=== PATIENT | male | born 1945 | race Caucasian/White ===

== ENCOUNTER 2020-12-24 09:00 | Inpatient (IN) ==
[~2020-12-24 09:00] MED LIST: CLORAZEPATE 3.75 MG TABLET PO PRN; DEXTROSE 50% 25 GM/50 ML VIAL IV PRN; GLUCAGON 1 MG VIAL IM PRN; MORPHINE 4 MG/1 ML VIAL IV PRN; NITROGLYCERIN SL 0.4 MG TABLET SL PRN
[2020-12-24 10:21] LABS: Basophils % 0.4 % (0.0-0.8); Eosinophils # 0.5 10*3/uL (0.0-0.87); Eosinophils % 4.2 % (0.00-10.9); Hematocrit 42.2 VOL% (42.0-52.0); Hemoglobin 13.2 GM/DL (14.0-18.0); Immature Granulocytes % 1.7 %; Immature Granulocytes Absolute 0.19 #; Lymphocytes # 1.3 10*3/uL (1.4-4.0); Lymphocytes % 11.5 % (21.2-54.2); Mean Corpuscular HGB Conc 31.3 GM/DL (32-36); Mean Corpuscular Volume 88.5 FL (87-102); Mean Platelet Volume 8.3 FL (9.6-12.0); Monocytes % 6.2 % (1.7-12.7); Platelet Count 327 T/CUMM (130-400); Red Blood Count 4.77 MC/CUMM (3.8-5.5); Red Cell Distribution Width 15.8 % (9.3-17.3); White Blood Count 10.9 T/CUMM (4-12)
[2020-12-24 10:44] LABS: Albumin 3.4 G/DL (3.4-5.0); Bilirubin,Total 0.5 MG/DL (0.2-1.0); Calcium 9.1 MG/DL (8.5-10.1); Osmolality,Calculated 274.8 MOS/KG (273-304); Potassium 3.5 MMOL/L (3.5-5.1); Total Protein 7.4 G/DL (5.0-7.5)
[2020-12-24 10:54] LABS: ABG Base Excess 0.4 MMOL/L (-2.5-2.5); ABG HCO3 23.8 MMOL/L (20-26); ABG Oxygen Saturation 95.3 % (95-100); ABG PCO2 34.5 MM HG (35-48); ABG PH 7.457 (7.35-7.45); ABG PO2 77.3 MM HG (80-95); ABG TCO2 24.9 MMOL/L (23-27)
[2020-12-24] MEDS: SODIUM CHLORIDE 0.9% 1,000 ML IV SCH (10:57)
[2020-12-24] MEDS: CHLORHEXIDINE 0.12% ORAL RINSE 60 ML BOTTLE SWISH/SPIT SCH ×2 (11:35→20:50)
[2020-12-24] MEDS: CHLORHEXIDINE 4% SOLN 118 ML BOTTLE TOP SCH ×4 (11:35→20:45)
[2020-12-24] MEDS: LOSARTAN 25 MG TABLET PO SCH (13:51)
[2020-12-24] MEDS: ASPIRIN EC 81 MG TABLET PO SCH (13:51)
[2020-12-24] MEDS: ISOSORBIDE MONONITRATE 30 MG TABLET PO SCH (13:52)
[2020-12-24] MEDS ORDERED: ZALEPLON 5 MG CAPSULE PO PRN (19:25)
[2020-12-24] MEDS ORDERED: ROSUVASTATIN 20 MG TABLET PO SCH (21:00)
[2020-12-25] MEDS: LOSARTAN 25 MG TABLET PO SCH ×2 (00:29→09:29)
[2020-12-25] MEDS ORDERED: hydrALAZINE 20 MG/1 ML VIAL IV PRN (00:33)
[2020-12-25] MEDS ORDERED: NITROGLYCERIN 2% OINT 1 INCH/GM PACK TOP ONE (00:34)
[2020-12-25] MEDS ORDERED: VANCOMYCIN 500 MG VIAL ONE (04:21)
[2020-12-25] MEDS ORDERED: PAPAVERINE 60 MG/2 ML VIAL ONE ×2 (04:21→05:57)
[2020-12-25] MEDS ORDERED: VANCOMYCIN 1,000 MG VIAL ONE (04:21)
[2020-12-25] MEDS: CHLORHEXIDINE 4% SOLN 118 ML BOTTLE TOP SCH (04:30)
[2020-12-25] MEDS ORDERED: CEFUROXIME INJ 1,500 MG in SYRINGE 1 EACH IV ONE (05:00)
[2020-12-25] MEDS ORDERED: AMINOCAPROIC ACID 5,000 MG/20 ML VIAL ONE (05:28)
[2020-12-25] MEDS ORDERED: HEPARIN/NACL 0.9% 2 UNITS/ML 500 ML IV ONE (05:29)
[2020-12-25] MEDS ORDERED: PHENYLEPHRINE DRIP 20 MG/250 ML PREMIX IV ONE (05:29)
[2020-12-25] MEDS ORDERED: NITROGLYCERIN DRIP 50 MG/250 ML BOTTLE IV ONE (05:29)
[2020-12-25] MEDS ORDERED: ALBUTEROL 2.5 MG/3 ML NEB RESP TX ONE (05:45)
[2020-12-25] MEDS ORDERED: SODIUM CHLORIDE 0.9% 250 ML IV ONE ×2 (05:45→06:20)
[2020-12-25] MEDS ORDERED: DIAZEPAM 5 MG TABLET PO ONE (05:45)
[2020-12-25] MEDS ORDERED: SODIUM CHLORIDE 0.9% 0 ML IV ONE (05:45)
[2020-12-25] MEDS ORDERED: LACTATED RINGERS 1,000 ML IV ONE (05:45)
[2020-12-25] MEDS ORDERED: FAMOTIDINE 20 MG TABLET PO ONE (05:45)
[2020-12-25] MEDS ORDERED: MINERAL OIL/PETROLATUM OPH OINT 3.5 GM TUBE ONE (05:54)
[2020-12-25] MEDS ORDERED: MIDAZOLAM 10 MG/2 ML VIAL ONE ×4 (05:55→05:56)
[2020-12-25] MEDS ORDERED: SUFentanil 250 MCG/5 ML AMP ONE ×4 (06:00)
[2020-12-25] MEDS ORDERED: SODIUM CHLORIDE 0.9% 100 ML IV ONE (06:00)
[2020-12-25] MEDS ORDERED: LIDOCAINE 2% 5 ML VIAL ONE ×2 (06:12→11:14)
[2020-12-25] MEDS ORDERED: VECURONIUM 10 MG VIAL IV ONE (06:13)
[2020-12-25] MEDS ORDERED: ETOMIDATE 40 MG/20 ML VIAL IV ONE (06:18)
[2020-12-25] MEDS ORDERED: ePHEDrine 50 MG/ML VIAL ONE (07:34)
[2020-12-25 08:03] LABS: Hemoglobin Heart Surgery 12.4 G/DL (14.0-18.0); PCO2 Patient Temp Venous 36.2 MM HG; PH Patient Temp Venous 7.403; PO2 Patient Temp Venous 57.5 MM HG; Potassium Heart/CVR 2.9 MMOL/L (3.5-5.1); VBG Base Excess -2.2 MEQ/L (0-4); VBG HCO3 22.1 MEQ/L (24-28); VBG Oxygen Saturation 86.7 %; VBG PCO2 36.2 MMHG (41-51); VBG PH 7.403; VBG PO2 57.5 MMHG (17-40); VBG Total CO2 23.2 MMOL/L
[2020-12-25 08:15] LABS: Bilirubin,Urine Negative (Negative); Blood, Urine Small mg/dL (Negative); Glucose,Urine (UA) Negative (Negative); Ketones,Urine Negative (Negative); Mucus,Urine Occasional /LPF (Occasional); Nitrite,Urine Negative (Negative); Protein,Urine Negative; RBC,Urine 2 /HPF (0-4); Squamous Epithelial Cell,Urine Occasional /HPF (0-10); Urine Appearance CLEAR (Clear); Urine Color Straw (Yellow); Urine Specific Gravity 1.006 (1.001-1.035); Urine Urobilinogen < 2.0 EU/DL (0.2-1.0); WBC,Urine <1 /HPF (0-6)
[2020-12-25] MEDS ORDERED: PHENYLEPHRINE DRIP 40 MG/250 ML PREMIX IV ONE (09:03)
[2020-12-25] MEDS ORDERED: POTASSIUM CHLORIDE RIDER 100 ML IV ONE (09:03)
[2020-12-25] MEDS ORDERED: CALCIUM CHLORIDE 1,000 MG/10 ML SYRINGE IV ONE (09:03)
[2020-12-25] MEDS ORDERED: NITROPRUSSIDE 50 MG/2 ML VIAL ONE (09:03)
[2020-12-25] MEDS ORDERED: SODIUM BICARBONATE 50 MEQ/50 ML VIAL IV ONE ×2 (09:03→11:15)
[2020-12-25 09:17] LABS: Hematocrit Heart Surgery 26.3 PERCENT (42-52); Hemoglobin Heart Surgery 8.5 G/DL (14.0-18.0); PCO2 Patient Temp Venous 27.8 MM HG; PH Patient Temp Venous 7.513; PO2 Patient Temp Venous 36.5 MM HG; Potassium Heart/CVR 3.5 MMOL/L (3.5-5.1); VBG Base Excess 0.1 MEQ/L (0-4); VBG HCO3 24.3 MEQ/L (24-28); VBG Oxygen Saturation 84.9 %; VBG PCO2 33.7 MMHG (41-51); VBG PH 7.454; VBG PO2 48.1 MMHG (17-40); VBG Total CO2 21.9 MMOL/L
[2020-12-25] MEDS ORDERED: SODIUM CHLORIDE 0.9% 1,000 ML IV ONE (09:18)
[2020-12-25] MEDS: ASPIRIN EC 81 MG TABLET PO SCH (09:29)
[2020-12-25] MEDS: CHLORHEXIDINE 0.12% ORAL RINSE 60 ML BOTTLE SWISH/SPIT SCH ×2 (09:29→20:23)
[2020-12-25] MEDS: SODIUM CHLORIDE 0.9% 1,000 ML IV SCH (09:29)
[2020-12-25] MEDS: ISOSORBIDE MONONITRATE 30 MG TABLET PO SCH (09:29)
[2020-12-25 09:49] LABS: Hematocrit Heart Surgery 27.2 PERCENT (42-52); Hemoglobin Heart Surgery 8.8 G/DL (14.0-18.0); PCO2 Patient Temp Venous 32.5 MM HG; PH Patient Temp Venous 7.452; PO2 Patient Temp Venous 42.8 MM HG; Potassium Heart/CVR 3.2 MMOL/L (3.5-5.1); VBG Base Excess -0.7 MEQ/L (0-4); VBG HCO3 23.6 MEQ/L (24-28); VBG Oxygen Saturation 85.9 %; VBG PCO2 37.6 MMHG (41-51); VBG PH 7.408; VBG PO2 52.4 MMHG (17-40); VBG Total CO2 21.9 MMOL/L
[2020-12-25] MEDS ORDERED: ESMOLOL 100 MG/10 ML VIAL IV ONE (10:05)
[2020-12-25] MEDS ORDERED: CALCIUM CHLORIDE 1,000 MG/10 ML VIAL IV ONE ×2 (10:07→10:35)
[2020-12-25] MEDS ORDERED: THROMBIN TOPICAL (RECOMBINANT) 5,000 UNIT VIAL TOP ONE (10:32)
[2020-12-25 11:09] LABS: Hematocrit Heart Surgery 25.9 PERCENT (42-52); Hemoglobin Heart Surgery 8.3 G/DL (14.0-18.0); PCO2 Patient Temp Venous 45.8 MM HG; PH Patient Temp Venous 7.337; PO2 Patient Temp Venous 51.3 MM HG; Potassium Heart/CVR 3.4 MMOL/L (3.5-5.1); VBG Base Excess -1.4 MEQ/L (0-4); VBG Oxygen Saturation 81.7 %; VBG PCO2 45.8 MMHG (41-51); VBG PH 7.337; VBG PO2 51.3 MMHG (17-40)
[2020-12-25] MEDS ORDERED: methylPREDNISolone SOD SUC 1,000 MG/8 ML VIAL ONE (11:14)
[2020-12-25] MEDS ORDERED: DEXTROSE 5% KCL 20 MEQ 20 MEQ/1,000 ML BAG IV ONE (11:14)
[2020-12-25] MEDS ORDERED: MAGNESIUM SULFATE 5 GM/10 ML VIAL IV ONE (11:14)
[2020-12-25] MEDS ORDERED: ALBUMIN 25% 25 GM/100 ML VIAL IV ONE (11:14)
[2020-12-25] MEDS ORDERED: ALBUMIN 5% 12.5 GM/250 ML VIAL IV ONE (11:15)
[2020-12-25] MEDS ORDERED: FUROSEMIDE 20 MG/2 ML VIAL ONE (11:15)
[2020-12-25] MEDS ORDERED: PROTAMINE SULFATE 250 MG/25 ML VIAL IV ONE (11:15)
[2020-12-25] MEDS ORDERED: PROTAMINE SULFATE 50 MG/5 ML VIAL IV ONE (11:15)
[2020-12-25] MEDS ORDERED: MANNITOL 100 GM/500 ML BAG IV ONE (11:15)
[2020-12-25] MEDS ORDERED: POTASSIUM CHLORIDE 20 MEQ/10 ML VIAL ONE (11:15)
[2020-12-25] MEDS ORDERED: HEPARIN 10,000 UNIT/10 ML VIAL ONE (11:15)
[2020-12-25] MEDS ORDERED: SEVOFLURANE 1 UNIT/15 MINUTE INH ONE (12:03)
[2020-12-25] MEDS ORDERED: NITROPRUSSIDE 100 MG in DEXTROSE 5% 250 ML IV PRN (12:17)
[2020-12-25] MEDS ORDERED: CALCIUM CHLORIDE 1,000 MG/10 ML SYRINGE IV PRN (12:17)
[2020-12-25] MEDS ORDERED: MIDAZOLAM 10 MG/2 ML VIAL IV PRN (12:17)
[2020-12-25] MEDS ORDERED: INSULIN REGULAR 100 UNIT/ML IV ONE (12:17)
[2020-12-25] MEDS ORDERED: ONDANSETRON 4 MG/2 ML VIAL IV PRN (12:17)
[2020-12-25] MEDS ORDERED: PHENYLEPHRINE DRIP 40 MG/250 ML PREMIX IV PRN (12:17)
[2020-12-25] MEDS ORDERED: ACETAMINOPHEN 650 MG SUPP RECTAL PRN (12:17)
[2020-12-25] MEDS ORDERED: MAGNESIUM SULF RIDER 2 GM in PREMIX 1 EACH IV PRN (12:17)
[2020-12-25] MEDS ORDERED: INSULIN REGULAR 100 UNIT/ML IV PRN (12:17)
[2020-12-25] MEDS ORDERED: LACTATED RINGERS 250 ML IV PRN (12:17)
[2020-12-25] MEDS ORDERED: MAGNESIUM SULF RIDER 4 GM in PREMIX 1 EACH IV PRN (12:17)
[2020-12-25] MEDS ORDERED: DEXTROSE 50% 25 GM/50 ML VIAL IV PRN ×3 (12:17→14:46)
[2020-12-25] MEDS ORDERED: VECURONIUM 10 MG VIAL IV PRN ×2 (12:17)
[2020-12-25 12:28] LABS: ABG Base Excess 0.1 MMOL/L (-2.5-2.5); ABG HCO3 24.6 MMOL/L (20-26); ABG Oxygen Saturation 99.8 % (95-100); ABG PCO2 40.6 MM HG (35-48); ABG PH 7.397 (7.35-7.45); ABG TCO2 22.5 MMOL/L (23-27); Glucose Heart Surgery 145 MG/DL (74-106); Hematocrit Heart Surgery 32.4 PERCENT (42-52); Hemoglobin Heart Surgery 10.5 G/DL (14.0-18.0); Potassium Heart/CVR 3.8 MMOL/L (3.5-5.1)
[2020-12-25 12:29] LABS: Basophils % 0.3 % (0.0-0.8); Eosinophils # 0.1 10*3/uL (0.0-0.87); Eosinophils % 1.1 % (0.00-10.9); Hematocrit 32.3 VOL% (42.0-52.0); Hemoglobin 10.3 GM/DL (14.0-18.0); Immature Granulocytes % 1.6 %; Immature Granulocytes Absolute 0.19 #; Lymphocytes # 0.8 10*3/uL (1.4-4.0); Lymphocytes % 7.1 % (21.2-54.2); Mean Corpuscular HGB Conc 31.9 GM/DL (32-36); Mean Platelet Volume 8.8 FL (9.6-12.0); Monocytes % 5.2 % (1.7-12.7); Neutrophils % 84.7 % (38.7-73.9); Platelet Count 231 T/CUMM (130-400); Red Blood Count 3.67 MC/CUMM (3.8-5.5); Red Cell Distribution Width 15.8 % (9.3-17.3); White Blood Count 11.7 T/CUMM (4-12)
[2020-12-25] MEDS: SODIUM CHLORIDE 0.45% 1,000 ML IV SCH ×2 (12:37)
[2020-12-25] MEDS: POTASSIUM CHLORIDE RIDER 20 MEQ in PREMIX 1 EACH IV PRN ×4 (12:40→23:59)
[2020-12-25 12:44] LABS: INR 1.1; PT Patient Result 12.2 SECS (9.8-11.9); Partial Thromboplastin Time 26.2 SECS (23.9-33.8)
[2020-12-25] MEDS: methylPREDNISolone SOD SUC 40 MG/1 ML VIAL IV SCH ×2 (12:46→18:18)
[2020-12-25] MEDS: KETOROLAC 30 MG/1 ML VIAL IV SCH ×2 (12:46→18:18)
[2020-12-25 12:51] LABS: CKMB % 11.9 %
[2020-12-25 12:56] LABS: Albumin 2.9 G/DL (3.4-5.0); Bilirubin,Total 1.2 MG/DL (0.2-1.0); Calcium 8.8 MG/DL (8.5-10.1); Potassium 3.8 MMOL/L (3.5-5.1); Total Protein 5.4 G/DL (5.0-7.5)
[2020-12-25] MEDS: POTASSIUM CHLORIDE RIDER 10 MEQ in PREMIX 1 EACH IV PRN ×2 (13:10→16:47)
[2020-12-25 13:15] LABS: Troponin I 5.84 NG/ML (0.00-0.045)
[2020-12-25 14:00] LABS: ABG Base Excess 0.7 MMOL/L (-2.5-2.5); ABG HCO3 25.1 MMOL/L (20-26); ABG Oxygen Saturation 99.6 % (95-100); ABG PCO2 36.7 MM HG (35-48); ABG PH 7.436 (7.35-7.45); ABG TCO2 22.2 MMOL/L (23-27); Glucose Heart Surgery 174 MG/DL (74-106); Hematocrit Heart Surgery 32.4 PERCENT (42-52); Hemoglobin Heart Surgery 10.5 G/DL (14.0-18.0); Potassium Heart/CVR 4.4 MMOL/L (3.5-5.1)
[2020-12-25] MEDS: ALBUMIN 5% 12.5 GM in PREMIX 1 EACH IV PRN ×3 (14:12→21:25)
[2020-12-25 14:26] LABS: VBG Base Excess 0.3 MEQ/L (0-4); VBG HCO3 24.2 MEQ/L (24-28); VBG Oxygen Saturation 66.9 %; VBG PCO2 43.7 MMHG (41-51); VBG PH 7.376; VBG PO2 38.7 MMHG (17-40); VBG Total CO2 23.5 MMOL/L
[2020-12-25] MEDS: INSULIN REGULAR DRIP 100 ML IV SCH (14:28)
[2020-12-25] MEDS ORDERED: GLUCAGON 1 MG VIAL IM PRN (14:46)
[2020-12-25] MEDS: INSULIN REGULAR 100 UNIT/ML SUBCUT SCH ×3 (15:02→20:19)
[2020-12-25 16:08] LABS: ABG Base Excess -0.4 MMOL/L (-2.5-2.5); ABG HCO3 23.2 MMOL/L (20-26); ABG Oxygen Saturation 98.1 % (95-100); ABG PCO2 33.9 MM HG (35-48); ABG PH 7.453 (7.35-7.45); ABG PO2 142.2 MM HG (80-95); ABG TCO2 24.2 MMOL/L (23-27); Glucose Heart Surgery 154 MG/DL (74-106); Hemoglobin Heart Surgery 9.1 G/DL (14.0-18.0); Potassium Heart/CVR 3.7 MMOL/L (3.5-5.1)
[2020-12-25 17:25] LABS: ABG Base Excess -0.7 MMOL/L (-2.5-2.5); ABG HCO3 23.8 MMOL/L (20-26); ABG Oxygen Saturation 99.5 % (95-100); ABG PCO2 36.7 MM HG (35-48); ABG PH 7.415 (7.35-7.45); ABG TCO2 21.6 MMOL/L (23-27); Glucose Heart Surgery 164 MG/DL (74-106); Hematocrit Heart Surgery 28.2 PERCENT (42-52); Hemoglobin Heart Surgery 9.1 G/DL (14.0-18.0); Potassium Heart/CVR 4.6 MMOL/L (3.5-5.1)
[2020-12-25 20:21] LABS: ABG Base Excess -1.3 MMOL/L (-2.5-2.5); ABG HCO3 23.4 MMOL/L (20-26); ABG Oxygen Saturation 99.4 % (95-100); ABG PCO2 37.7 MM HG (35-48); ABG PH 7.397 (7.35-7.45); ABG TCO2 21.1 MMOL/L (23-27); Glucose Heart Surgery 142 MG/DL (74-106); Hematocrit Heart Surgery 31.6 PERCENT (42-52); Hemoglobin Heart Surgery 10.2 G/DL (14.0-18.0); Potassium Heart/CVR 4.4 MMOL/L (3.5-5.1)
[2020-12-25] MEDS: CEFUROXIME INJ 1,500 MG in SYRINGE 1 EACH IV SCH (20:23)
[2020-12-25 20:51] LABS: Troponin I 10.9 NG/ML (0.00-0.045)
[2020-12-25] MEDS ORDERED: FUROSEMIDE 40 MG/4 ML VIAL IV ONE (21:19)
[2020-12-25 23:50] LABS: ABG HCO3 23.6 MMOL/L (20-26); ABG Oxygen Saturation 99.1 % (95-100); ABG PCO2 37.6 MM HG (35-48); ABG PH 7.404 (7.35-7.45); ABG TCO2 21.3 MMOL/L (23-27); Glucose Heart Surgery 154 MG/DL (74-106); Hematocrit Heart Surgery 31.6 PERCENT (42-52); Hemoglobin Heart Surgery 10.2 G/DL (14.0-18.0); Potassium Heart/CVR 4.2 MMOL/L (3.5-5.1)
[2020-12-26] MEDS: methylPREDNISolone SOD SUC 40 MG/1 ML VIAL IV SCH ×4 (00:01→17:58)
[2020-12-26] MEDS: KETOROLAC 30 MG/1 ML VIAL IV SCH ×4 (00:04→18:01)
[2020-12-26] MEDS: MIDAZOLAM 2 MG/2 ML VIAL IV PRN ×2 (00:38→08:45)
[2020-12-26 01:39] LABS: ABG Base Excess -0.7 MMOL/L (-2.5-2.5); ABG HCO3 23.9 MMOL/L (20-26); ABG Oxygen Saturation 99.2 % (95-100); ABG PCO2 39.8 MM HG (35-48); ABG PH 7.391 (7.35-7.45); Glucose Heart Surgery 158 MG/DL (74-106); Hematocrit Heart Surgery 30.9 PERCENT (42-52); Potassium Heart/CVR 4.5 MMOL/L (3.5-5.1)
[2020-12-26 02:34] LABS: ABG Oxygen Saturation 97.4 % (95-100); ABG PCO2 35.3 MM HG (35-48); ABG PH 7.431 (7.35-7.45); ABG PO2 109.7 MM HG (80-95); Glucose Heart Surgery 137 MG/DL (74-106); Hemoglobin Heart Surgery 10.3 G/DL (14.0-18.0); Potassium Heart/CVR 4.2 MMOL/L (3.5-5.1)
[2020-12-26] MEDS: POTASSIUM CHLORIDE RIDER 20 MEQ in PREMIX 1 EACH IV PRN ×3 (03:02→17:49)
[2020-12-26] MEDS: MORPHINE 4 MG/1 ML VIAL IV PRN (03:02)
[2020-12-26 04:41] LABS: ABG Base Excess -0.9 MMOL/L (-2.5-2.5); ABG HCO3 23.7 MMOL/L (20-26); ABG Oxygen Saturation 99.3 % (95-100); ABG PCO2 36.7 MM HG (35-48); ABG PH 7.411 (7.35-7.45); ABG TCO2 21.4 MMOL/L (23-27); Glucose Heart Surgery 159 MG/DL (74-106); Hemoglobin Heart Surgery 9.4 G/DL (14.0-18.0); Potassium Heart/CVR 4.7 MMOL/L (3.5-5.1)
[2020-12-26 04:42] LABS: Basophils % 0.2 % (0.0-0.8); Hematocrit 28.3 VOL% (42.0-52.0); Hemoglobin 9.1 GM/DL (14.0-18.0); Immature Granulocytes % 0.5 %; Immature Granulocytes Absolute 0.07 #; Lymphocytes # 0.6 10*3/uL (1.4-4.0); Lymphocytes % 4.3 % (21.2-54.2); Mean Corpuscular HGB Conc 32.2 GM/DL (32-36); Mean Corpuscular Volume 87.9 FL (87-102); Mean Platelet Volume 9.3 FL (9.6-12.0); Monocytes % 2.6 % (1.7-12.7); Neutrophils % 92.4 % (38.7-73.9); Platelet Count 209 T/CUMM (130-400); Red Blood Count 3.22 MC/CUMM (3.8-5.5); White Blood Count 13.2 T/CUMM (4-12)
[2020-12-26] MEDS ORDERED: VANCOMYCIN 1,000 MG VIAL ONE ×2 (05:05→06:54)
[2020-12-26 05:14] LABS: Albumin 3.1 G/DL (3.4-5.0); Bilirubin,Direct 0.19 MG/DL (0.0-0.20); Bilirubin,Total 1.2 MG/DL (0.2-1.0); Total Protein 5.1 G/DL (5.0-7.5)
[2020-12-26 05:16] LABS: CKMB % 23.3 %
[2020-12-26 05:19] LABS: Lymphocytes 5 % (20-55); Segmented Neutrophils 93 % (50-85); Total Cells Counted 100; Troponin I 19.7 NG/ML (0.00-0.045)
[2020-12-26 05:20] LABS: Hypochromasia 1+; Platelet Estimate Normal
[2020-12-26] MEDS ORDERED: SUFentanil 250 MCG/5 ML AMP ONE ×2 (05:53→07:54)
[2020-12-26] MEDS ORDERED: MIDAZOLAM 10 MG/2 ML VIAL ONE ×3 (05:53→07:49)
[2020-12-26] MEDS ORDERED: EPINEPHrine 1 MG/ML VIAL ONE ×2 (06:20→06:46)
[2020-12-26] MEDS ORDERED: EPINEPHrine 1 MG/10 ML SYRINGE ONE (06:21)
[2020-12-26 06:22] LABS: ABG Base Excess -8.5 MMOL/L (-2.5-2.5); ABG HCO3 15.1 MMOL/L (20-26); ABG PCO2 26.4 MM HG (35-48); ABG PH 7.375 (7.35-7.45); ABG PO2 427.9 MM HG (80-95); ABG TCO2 15.9 MMOL/L (23-27); Glucose Heart Surgery 204 MG/DL (74-106); Hemoglobin Heart Surgery 12.7 G/DL (14.0-18.0); Ionized Calcium Arterial 0.92 MMOL/L (1.21-1.46); PCO2 Patient Temp Arterial 26.4 MMHG; PH Patient Temp Arterial 7.375; PO2 Patient Temp Arterial 427.9 MM HG; Patient Temperature 37 CELCIUS; Potassium Heart/CVR 5.7 MMOL/L (3.5-5.1); Sodium Heart/CVR 136 MMOL/L (135-145)
[2020-12-26] MEDS ORDERED: AMIODARONE 150 MG/3 ML VIAL ONE ×2 (06:43→08:56)
[2020-12-26] MEDS ORDERED: MANNITOL 100 GM/500 ML BAG IV ONE ×2 (06:43→08:05)
[2020-12-26] MEDS ORDERED: LIDOCAINE 2% 5 ML VIAL ONE (06:44)
[2020-12-26] MEDS ORDERED: ETOMIDATE 40 MG/20 ML VIAL IV ONE (06:44)
[2020-12-26] MEDS ORDERED: SEVOFLURANE 1 UNIT/15 MINUTE INH ONE (06:44)
[2020-12-26] MEDS ORDERED: SUCCINYLCHOLINE 200 MG/10 ML VIAL ONE (06:44)
[2020-12-26] MEDS ORDERED: PHENYLEPHRINE 1 MG/10 ML SYRINGE IV ONE (06:45)
[2020-12-26] MEDS ORDERED: PHENYLEPHRINE DRIP 20 MG/250 ML PREMIX IV ONE (06:45)
[2020-12-26] MEDS ORDERED: SODIUM CHLORIDE 0.9% 500 ML IV ONE (06:46)
[2020-12-26] MEDS ORDERED: LACTATED RINGERS 1,000 ML IV ONE ×2 (06:46→07:22)
[2020-12-26 06:51] LABS: Hematocrit Heart Surgery 31.6 PERCENT (42-52); Hemoglobin Heart Surgery 10.2 G/DL (14.0-18.0); PCO2 Patient Temp Venous 44.2 MM HG; PH Patient Temp Venous 7.325; PO2 Patient Temp Venous 48.8 MM HG; Potassium Heart/CVR 4.7 MMOL/L (3.5-5.1); VBG Base Excess -2.9 MEQ/L (0-4); VBG HCO3 21.9 MEQ/L (24-28); VBG Oxygen Saturation 90.9 %; VBG PCO2 51.1 MMHG (41-51); VBG PH 7.284; VBG PO2 59.7 MMHG (17-40); VBG Total CO2 22.3 MMOL/L
[2020-12-26] MEDS ORDERED: FAMOTIDINE 20 MG/2 ML VIAL IV ONE (07:15)
[2020-12-26] MEDS ORDERED: diphenhydrAMINE 50 MG/1 ML VIAL ONE (07:22)
[2020-12-26] MEDS ORDERED: CALCIUM CHLORIDE 1,000 MG/10 ML VIAL IV ONE (07:22)
[2020-12-26] MEDS ORDERED: DOBUTamine 500 MG/250 ML PREMIX IV ONE (07:22)
[2020-12-26 07:45] LABS: ABG HCO3 22.7 MMOL/L (20-26); ABG PCO2 39.3 MM HG (35-48); ABG PH 7.374 (7.35-7.45); Glucose Heart Surgery 220 MG/DL (74-106); Hematocrit Heart Surgery 29.5 PERCENT (42-52); Hemoglobin Heart Surgery 9.5 G/DL (14.0-18.0); Ionized Calcium Arterial 0.95 MMOL/L (1.21-1.46); PCO2 Patient Temp Arterial 39.3 MMHG; PH Patient Temp Arterial 7.374; Patient Temperature 37 CELCIUS; Potassium Heart/CVR 4.4 MMOL/L (3.5-5.1); Sodium Heart/CVR 143 MMOL/L (135-145)
[2020-12-26] MEDS ORDERED: NITROGLYCERIN DRIP 50 MG/250 ML BOTTLE IV ONE (08:00)
[2020-12-26] MEDS ORDERED: ALBUMIN 5% 12.5 GM/250 ML VIAL IV ONE ×2 (08:05→13:52)
[2020-12-26] MEDS ORDERED: SODIUM BICARBONATE 50 MEQ/50 ML VIAL IV ONE (08:06)
[2020-12-26] MEDS ORDERED: FUROSEMIDE 20 MG/2 ML VIAL ONE (08:06)
[2020-12-26] MEDS ORDERED: MANNITOL 12.5 GM/50 ML VIAL IV ONE (08:06)
[2020-12-26] MEDS ORDERED: HEPARIN 10,000 UNIT/10 ML VIAL ONE (08:06)
[2020-12-26] MEDS ORDERED: PROTAMINE SULFATE 250 MG/25 ML VIAL IV ONE (08:07)
[2020-12-26] MEDS ORDERED: HEPARIN/NACL 0.9% 2 UNITS/ML 500 ML IV ONE (08:07)
[2020-12-26] MEDS ORDERED: DOBUTamine 500 MG/250 ML PREMIX IV PRN (08:30)
[2020-12-26] MEDS ORDERED: AMIODARONE 450 MG/9 ML VIAL IV ONE (08:46)
[2020-12-26] MEDS ORDERED: LIDOCAINE 100 MG/5 ML SYRINGE ONE (08:46)
[2020-12-26] MEDS: ALBUMIN 5% 12.5 GM in PREMIX 1 EACH IV PRN ×2 (09:00→11:40)
[2020-12-26 09:01] LABS: Hematocrit Heart Surgery 31.9 PERCENT (42-52); Hemoglobin Heart Surgery 10.3 G/DL (14.0-18.0); PCO2 Patient Temp Venous 49.2 MM HG; PH Patient Temp Venous 7.349; PO2 Patient Temp Venous 41.2 MM HG; Potassium Heart/CVR 3.7 MMOL/L (3.5-5.1); VBG Base Excess 0.9 MEQ/L (0-4); VBG HCO3 24.8 MEQ/L (24-28); VBG Oxygen Saturation 77.1 %; VBG PCO2 49.2 MMHG (41-51); VBG PH 7.349; VBG PO2 41.2 MMHG (17-40); VBG Total CO2 24.8 MMOL/L
[2020-12-26 09:09] LABS: ABG HCO3 25.4 MMOL/L (20-26); ABG PCO2 46.3 MM HG (35-48); ABG TCO2 24.2 MMOL/L (23-27); Glucose Heart Surgery 175 MG/DL (74-106); Hematocrit Heart Surgery 32.5 PERCENT (42-52); Hemoglobin Heart Surgery 10.5 G/DL (14.0-18.0); Potassium Heart/CVR 3.8 MMOL/L (3.5-5.1)
[2020-12-26] MEDS ORDERED: AMIODARONE INJ 50 MG in DEXTROSE 5% 100 ML IV ONE ×2 (09:09→19:42)
[2020-12-26] MEDS ORDERED: AMIODARONE INJ 450 MG in DEXTROSE 5% 241 ML IV SCH (09:09)
[2020-12-26] MEDS ORDERED: PROTAMINE SULFATE 50 MG/5 ML VIAL IV ONE (09:10)
[2020-12-26 09:22] LABS: Basophils % 0.1 % (0.0-0.8); Eosinophils % 0.1 % (0.00-10.9); Hematocrit 30.5 VOL% (42.0-52.0); Hemoglobin 10.3 GM/DL (14.0-18.0); Immature Granulocytes % 1.3 %; Immature Granulocytes Absolute 0.15 #; Lymphocytes # 0.8 10*3/uL (1.4-4.0); Lymphocytes % 7.1 % (21.2-54.2); Mean Corpuscular HGB Conc 33.8 GM/DL (32-36); Mean Corpuscular Volume 87.4 FL (87-102); Mean Platelet Volume 10.2 FL (9.6-12.0); Monocytes % 2.4 % (1.7-12.7); Red Blood Count 3.49 MC/CUMM (3.8-5.5); White Blood Count 11.2 T/CUMM (4-12)
[2020-12-26 09:23] LABS: CKMB % 15.3 %
[2020-12-26 09:24] LABS: Calcium 8.9 MG/DL (8.5-10.1); Osmolality,Calculated 298.4 MOS/KG (273-304)
[2020-12-26 09:25] LABS: Troponin I 36.6 NG/ML (0.00-0.045)
[2020-12-26 09:28] LABS: INR 1.3; PT Patient Result 13.7 SECS (9.8-11.9); Partial Thromboplastin Time 32.4 SECS (23.9-33.8)
[2020-12-26 09:30] LABS: Platelet Count 105 T/CUMM (130-400)
[2020-12-26] MEDS: NITROGLYCERIN DRIP 50 MG/250 ML BOTTLE IV PRN (10:00)
[2020-12-26] MEDS: POTASSIUM CHLORIDE RIDER 10 MEQ in PREMIX 1 EACH IV PRN (10:10)
[2020-12-26] MEDS: CHLORHEXIDINE 0.12% ORAL RINSE 60 ML BOTTLE SWISH/SPIT SCH ×2 (11:21→20:12)
[2020-12-26] MEDS: CEFUROXIME INJ 1,500 MG in SYRINGE 1 EACH IV SCH ×2 (11:21→20:01)
[2020-12-26] MEDS: VANCOMYCIN INJ 1,000 MG in SODIUM CHLORIDE 0.9% 250 ML IV SCH ×2 (13:00→21:07)
[2020-12-26] MEDS: SODIUM CHLORIDE 0.45% 1,000 ML IV SCH ×2 (13:26)
[2020-12-26 14:09] LABS: ABG Base Excess 1.4 MMOL/L (-2.5-2.5); ABG HCO3 25.7 MMOL/L (20-26); ABG Oxygen Saturation 99.3 % (95-100); ABG PCO2 50.5 MM HG (35-48); ABG PH 7.345 (7.35-7.45); ABG TCO2 25.8 MMOL/L (23-27); Glucose Heart Surgery 124 MG/DL (74-106); Potassium Heart/CVR 4.3 MMOL/L (3.5-5.1)
[2020-12-26 14:26] LABS: CKMB % 14.5 %
[2020-12-26 14:37] LABS: Troponin I 24.5 NG/ML (0.00-0.045)
[2020-12-26] MEDS: INSULIN REGULAR 100 UNIT/ML SUBCUT SCH (15:23)
[2020-12-26] MEDS ORDERED: FUROSEMIDE 40 MG/4 ML VIAL IV ONE (16:30)
[2020-12-26 17:20] LABS: ABG Base Excess 2.4 MMOL/L (-2.5-2.5); ABG HCO3 26.6 MMOL/L (20-26); ABG Oxygen Saturation 99.6 % (95-100); ABG PCO2 34.4 MM HG (35-48); ABG PH 7.481 (7.35-7.45); ABG TCO2 23.1 MMOL/L (23-27); Glucose Heart Surgery 129 MG/DL (74-106); Hematocrit Heart Surgery 31.5 PERCENT (42-52); Hemoglobin Heart Surgery 10.2 G/DL (14.0-18.0); Potassium Heart/CVR 4.2 MMOL/L (3.5-5.1)
[2020-12-26] MEDS: INSULIN REGULAR DRIP 100 ML IV SCH (17:50)
[2020-12-26] MEDS: AMIODARONE INJ 450 MG in DEXTROSE 5% 241 ML IV SCH (17:56)
[2020-12-26] MEDS: ASCORBIC ACID 500 MG TABLET PO SCH (21:02)
[2020-12-27 00:42] LABS: ABG Base Excess 2.1 MMOL/L (-2.5-2.5); ABG HCO3 26.3 MMOL/L (20-26); ABG Oxygen Saturation 99.1 % (95-100); ABG PCO2 32.3 MM HG (35-48); ABG PH 7.497 (7.35-7.45); ABG TCO2 22.8 MMOL/L (23-27); Glucose Heart Surgery 136 MG/DL (74-106); Hemoglobin Heart Surgery 9.4 G/DL (14.0-18.0); Potassium Heart/CVR 3.9 MMOL/L (3.5-5.1)
[2020-12-27] MEDS: methylPREDNISolone SOD SUC 40 MG/1 ML VIAL IV SCH ×4 (00:51→17:34)
[2020-12-27] MEDS: POTASSIUM CHLORIDE RIDER 20 MEQ in PREMIX 1 EACH IV PRN ×4 (00:53→22:45)
[2020-12-27] MEDS ORDERED: FUROSEMIDE 40 MG/4 ML VIAL IV ONE ×3 (03:00→21:44)
[2020-12-27 03:50] LABS: ABG HCO3 25.3 MMOL/L (20-26); ABG PCO2 37.2 MM HG (35-48); ABG PH 7.435 (7.35-7.45); ABG TCO2 22.4 MMOL/L (23-27); Glucose Heart Surgery 138 MG/DL (74-106); Hematocrit Heart Surgery 33.8 PERCENT (42-52); Potassium Heart/CVR 4.4 MMOL/L (3.5-5.1)
[2020-12-27 04:11] LABS: Basophils % 0.1 % (0.0-0.8); Hematocrit 31.2 VOL% (42.0-52.0); Hemoglobin 10.7 GM/DL (14.0-18.0); Immature Granulocytes % 0.6 %; Immature Granulocytes Absolute 0.06 #; Lymphocytes # 0.5 10*3/uL (1.4-4.0); Lymphocytes % 4.3 % (21.2-54.2); Mean Corpuscular HGB Conc 34.3 GM/DL (32-36); Mean Corpuscular Volume 86.2 FL (87-102); Monocytes % 4.9 % (1.7-12.7); Neutrophils % 90.1 % (38.7-73.9); Red Blood Count 3.62 MC/CUMM (3.8-5.5); Red Cell Distribution Width 15.2 % (9.3-17.3); White Blood Count 10.6 T/CUMM (4-12)
[2020-12-27 04:20] LABS: Platelet Count 77 T/CUMM (130-400)
[2020-12-27 04:25] LABS: Albumin 2.8 G/DL (3.4-5.0); Bilirubin,Direct 0.26 MG/DL (0.0-0.20); Bilirubin,Total 1.8 MG/DL (0.2-1.0); Calcium 7.8 MG/DL (8.5-10.1); Osmolality,Calculated 288.1 MOS/KG (273-304); Potassium 4.7 MMOL/L (3.5-5.1); Total Protein 4.7 G/DL (5.0-7.5)
[2020-12-27 04:32] LABS: Hypochromasia Slight; Microcytosis Slight; Platelet Estimate Decreased
[2020-12-27] MEDS ORDERED: HEPARIN/NACL 0.9% 2 UNITS/ML 500 ML IV ONE (04:36)
[2020-12-27] MEDS: MORPHINE 4 MG/1 ML VIAL IV PRN ×3 (04:55→20:52)
[2020-12-27] MEDS: MILRINONE 20 MG/100 ML PREMIX IV SCH ×3 (05:30→20:59)
[2020-12-27] MEDS: AMIODARONE INJ 450 MG in DEXTROSE 5% 241 ML IV SCH ×2 (06:29→11:56)
[2020-12-27 08:03] LABS: ABG Base Excess 0.8 MMOL/L (-2.5-2.5); ABG HCO3 25.1 MMOL/L (20-26); ABG Oxygen Saturation 97.7 % (95-100); ABG PCO2 39.5 MM HG (35-48); ABG PH 7.415 (7.35-7.45); ABG PO2 92.7 MM HG (80-95); ABG TCO2 22.7 MMOL/L (23-27); Glucose Heart Surgery 146 MG/DL (74-106); Hematocrit Heart Surgery 33.8 PERCENT (42-52); Potassium Heart/CVR 4.2 MMOL/L (3.5-5.1)
[2020-12-27] MEDS: ASCORBIC ACID 500 MG TABLET PO SCH ×2 (08:27→21:18)
[2020-12-27] MEDS: CHLORHEXIDINE 0.12% ORAL RINSE 60 ML BOTTLE SWISH/SPIT SCH ×2 (08:28→21:00)
[2020-12-27] MEDS: ISOSORBIDE MONONITRATE 30 MG TABLET PO SCH (08:44)
[2020-12-27] MEDS: LOSARTAN 25 MG TABLET PO SCH (08:44)
[2020-12-27] MEDS: VANCOMYCIN INJ 1,000 MG in SODIUM CHLORIDE 0.9% 250 ML IV SCH ×2 (08:48→21:18)
[2020-12-27 10:13] LABS: CKMB % 14.4 %
[2020-12-27] MEDS: NITROGLYCERIN DRIP 50 MG/250 ML BOTTLE IV PRN (10:24)
[2020-12-27 10:40] LABS: Troponin I 87.9 NG/ML (0.00-0.045)
[2020-12-27] MEDS ORDERED: DILTIAZEM 50 MG/10 ML VIAL IV STA (11:03)
[2020-12-27] MEDS: DILTIAZEM INJ 100 MG in SODIUM CHLORIDE 0.9% 100 ML IV SCH ×2 (11:21→22:25)
[2020-12-27] MEDS ORDERED: AMIODARONE INJ 50 MG in DEXTROSE 5% 100 ML IV ONE (11:57)
[2020-12-27] MEDS ORDERED: AMIODARONE 150 MG/3 ML VIAL ONE (11:59)
[2020-12-27 12:58] LABS: ABG Base Excess 1.5 MMOL/L (-2.5-2.5); ABG HCO3 25.8 MMOL/L (20-26); ABG PCO2 37.6 MM HG (35-48); ABG PH 7.439 (7.35-7.45); ABG PO2 92.6 MM HG (80-95); ABG TCO2 22.5 MMOL/L (23-27); Glucose Heart Surgery 188 MG/DL (74-106); Hematocrit Heart Surgery 37.6 PERCENT (42-52); Hemoglobin Heart Surgery 12.2 G/DL (14.0-18.0)
[2020-12-27] MEDS: INSULIN REGULAR DRIP 100 ML IV SCH (13:59)
[2020-12-27 14:12] LABS: ABG Base Excess 1.8 MMOL/L (-2.5-2.5); ABG Oxygen Saturation 97.4 % (95-100); ABG PCO2 37.2 MM HG (35-48); ABG PH 7.447 (7.35-7.45); ABG PO2 90.7 MM HG (80-95); ABG TCO2 22.4 MMOL/L (23-27); Glucose Heart Surgery 193 MG/DL (74-106); Hematocrit Heart Surgery 38.9 PERCENT (42-52); Hemoglobin Heart Surgery 12.7 G/DL (14.0-18.0); Potassium Heart/CVR 3.6 MMOL/L (3.5-5.1)
[2020-12-27] MEDS: SODIUM CHLORIDE 0.45% 1,000 ML IV SCH ×4 (14:17→18:18)
[2020-12-27 17:26] LABS: CKMB % 19.5 %
[2020-12-27 17:27] LABS: Troponin I 45.6 NG/ML (0.00-0.045)
[2020-12-27] MEDS: METOPROLOL TARTRATE 25 MG TABLET PO SCH ×3 (18:59→22:00)
[2020-12-28] MEDS: methylPREDNISolone SOD SUC 40 MG/1 ML VIAL IV SCH ×4 (00:22→18:12)
[2020-12-28] MEDS: MORPHINE 10 MG/1 ML VIAL IV PRN ×2 (00:24→04:39)
[2020-12-28] MEDS ORDERED: FUROSEMIDE 40 MG/4 ML VIAL IV ONE ×3 (03:00→23:55)
[2020-12-28] MEDS: AMIODARONE INJ 450 MG in DEXTROSE 5% 241 ML IV SCH ×3 (03:33→22:18)
[2020-12-28] MEDS: MILRINONE 20 MG/100 ML PREMIX IV SCH ×3 (04:35→22:40)
[2020-12-28 04:56] LABS: ABG Base Excess 2.2 MMOL/L (-2.5-2.5); ABG HCO3 26.3 MMOL/L (20-26); ABG PCO2 36.8 MM HG (35-48); ABG PH 7.455 (7.35-7.45); ABG PO2 77.7 MM HG (80-95); ABG TCO2 22.6 MMOL/L (23-27); Glucose Heart Surgery 179 MG/DL (74-106); Hematocrit Heart Surgery 39.3 PERCENT (42-52); Hemoglobin Heart Surgery 12.8 G/DL (14.0-18.0); Potassium Heart/CVR 3.7 MMOL/L (3.5-5.1)
[2020-12-28 05:00] LABS: Basophils % 0.1 % (0.0-0.8); Hematocrit 36.2 VOL% (42.0-52.0); Hemoglobin 12.4 GM/DL (14.0-18.0); Immature Granulocytes % 0.9 %; Immature Granulocytes Absolute 0.15 #; Lymphocytes # 0.4 10*3/uL (1.4-4.0); Lymphocytes % 2.3 % (21.2-54.2); Mean Corpuscular HGB Conc 34.3 GM/DL (32-36); Mean Platelet Volume 10.3 FL (9.6-12.0); Monocytes % 4.6 % (1.7-12.7); Neutrophils % 92.1 % (38.7-73.9); Red Blood Count 4.21 MC/CUMM (3.8-5.5); Red Cell Distribution Width 14.6 % (9.3-17.3)
[2020-12-28 05:09] LABS: Platelet Count 126 T/CUMM (130-400); White Blood Count 17.2 T/CUMM (4-12)
[2020-12-28] MEDS: POTASSIUM CHLORIDE RIDER 20 MEQ in PREMIX 1 EACH IV PRN ×2 (05:10→05:43)
[2020-12-28 05:17] LABS: Albumin 2.9 G/DL (3.4-5.0); Bilirubin,Direct 0.36 MG/DL (0.0-0.20); Bilirubin,Total 0.9 MG/DL (0.2-1.0); Calcium 8.3 MG/DL (8.5-10.1); Osmolality,Calculated 284.7 MOS/KG (273-304); Potassium 3.8 MMOL/L (3.5-5.1); Total Protein 5.6 G/DL (5.0-7.5)
[2020-12-28 05:21] LABS: Hypochromasia Slight; Lymphocytes 1 % (20-55); Microcytosis Slight; Platelet Estimate Normal; Segmented Neutrophils 95 % (50-85); Total Cells Counted 100
[2020-12-28] MEDS: CHLORHEXIDINE 0.12% ORAL RINSE 60 ML BOTTLE SWISH/SPIT SCH ×2 (08:11→21:30)
[2020-12-28] MEDS: METOPROLOL TARTRATE 50 MG TABLET PO SCH ×2 (08:11→21:30)
[2020-12-28] MEDS: ASCORBIC ACID 500 MG TABLET PO SCH ×2 (08:12→21:30)
[2020-12-28] MEDS: ISOSORBIDE MONONITRATE 30 MG TABLET PO SCH (08:12)
[2020-12-28] MEDS: LOSARTAN 25 MG TABLET PO SCH (08:12)
[2020-12-28] MEDS: PANTOPRAZOLE 40 MG TABLET PO SCH (08:12)
[2020-12-28] MEDS: ALBUMIN 5% 12.5 GM in PREMIX 1 EACH IV PRN ×2 (13:06→13:39)
[2020-12-28] MEDS: ASPIRIN EC 81 MG TABLET PO SCH (13:07)
[2020-12-28] MEDS ORDERED: ALBUTEROL/IPRATROPIUM 3 ML NEB RESP TX PRN (13:12)
[2020-12-28 14:40] LABS: Troponin I 41.4 NG/ML (0.00-0.045)
[2020-12-28] MEDS: DILTIAZEM INJ 100 MG in SODIUM CHLORIDE 0.9% 100 ML IV SCH ×2 (14:42→22:00)
[2020-12-28] MEDS: SODIUM CHLORIDE 0.45% 1,000 ML IV SCH ×2 (14:42)
[2020-12-28] MEDS: ALBUTEROL/IPRATROPIUM 3 ML NEB RESP TX SCH (19:30)
[2020-12-28] MEDS: MORPHINE 4 MG/1 ML VIAL IV PRN (20:30)
[2020-12-28 20:57] LABS: ABG Base Excess 0.4 MMOL/L (-2.5-2.5); ABG HCO3 24.7 MMOL/L (20-26); ABG Oxygen Saturation 94.4 % (95-100); ABG PCO2 33.2 MM HG (35-48); ABG PH 7.461 (7.35-7.45); ABG PO2 69.3 MM HG (80-95); ABG TCO2 20.8 MMOL/L (23-27); Glucose Heart Surgery 193 MG/DL (74-106); Hematocrit Heart Surgery 37.6 PERCENT (42-52); Hemoglobin Heart Surgery 12.2 G/DL (14.0-18.0); Potassium Heart/CVR 3.7 MMOL/L (3.5-5.1)
[2020-12-28] MEDS ORDERED: CLORAZEPATE 7.5 MG TABLET PO ONE (21:26)
[2020-12-28] MEDS ORDERED: AMIODARONE INJ 50 MG in DEXTROSE 5% 100 ML IV ONE (21:27)
[2020-12-28] MEDS: cloNIDine 0.1 MG TABLET PO SCH (21:30)
[2020-12-28] MEDS: NITROGLYCERIN DRIP 50 MG/250 ML BOTTLE IV PRN (22:12)
[2020-12-29] MEDS: methylPREDNISolone SOD SUC 40 MG/1 ML VIAL IV SCH ×5 (01:42→23:46)
[2020-12-29 04:27] LABS: ABG Base Excess 2.3 MMOL/L (-2.5-2.5); ABG HCO3 25.6 MMOL/L (20-26); ABG Oxygen Saturation 96.1 % (95-100); ABG PCO2 35.2 MM HG (35-48); ABG PH 7.479 (7.35-7.45); ABG PO2 84.8 MM HG (80-95); ABG TCO2 26.6 MMOL/L (23-27); Glucose Heart Surgery 155 MG/DL (74-106); Hemoglobin Heart Surgery 11.7 G/DL (14.0-18.0); Potassium Heart/CVR 3.3 MMOL/L (3.5-5.1)
[2020-12-29 04:32] LABS: Hematocrit 33.4 VOL% (42.0-52.0); Hemoglobin 11.2 GM/DL (14.0-18.0); Immature Granulocytes % 1.1 %; Immature Granulocytes Absolute 0.14 #; Lymphocytes # 0.4 10*3/uL (1.4-4.0); Lymphocytes % 3.1 % (21.2-54.2); Mean Corpuscular HGB Conc 33.5 GM/DL (32-36); Mean Platelet Volume 10.3 FL (9.6-12.0); Monocytes % 4.3 % (1.7-12.7); Neutrophils % 91.5 % (38.7-73.9); Platelet Count 143 T/CUMM (130-400); Red Blood Count 3.84 MC/CUMM (3.8-5.5); White Blood Count 13.2 T/CUMM (4-12)
[2020-12-29 04:51] LABS: Band Neutrophils 1 % (0-10); Hypochromasia 1+; Lymphocytes 3 % (20-55); Microcytosis 1+; Ovalocytes Slight; Platelet Estimate Adequate; Segmented Neutrophils 91 % (50-85); Total Cells Counted 100
[2020-12-29 04:55] LABS: Albumin 2.9 G/DL (3.4-5.0); Calcium 8.3 MG/DL (8.5-10.1); Osmolality,Calculated 283.7 MOS/KG (273-304); Potassium 3.4 MMOL/L (3.5-5.1); Total Protein 5.5 G/DL (5.0-7.5)
[2020-12-29 04:57] LABS: CKMB % 13.3 %
[2020-12-29 05:09] LABS: Troponin I 26.8 NG/ML (0.00-0.045)
[2020-12-29] MEDS: AMIODARONE INJ 450 MG in DEXTROSE 5% 241 ML IV SCH (05:22)
[2020-12-29] MEDS: POTASSIUM CHLORIDE RIDER 20 MEQ in PREMIX 1 EACH IV PRN ×2 (06:21→11:19)
[2020-12-29] MEDS: MILRINONE 20 MG/100 ML PREMIX IV SCH (06:53)
[2020-12-29] MEDS: ALBUTEROL/IPRATROPIUM 3 ML NEB RESP TX SCH ×2 (07:25→19:25)
[2020-12-29] MEDS ORDERED: tiZANidine 4 MG TABLET PO PRN (08:03)
[2020-12-29] MEDS: CHLORHEXIDINE 0.12% ORAL RINSE 60 ML BOTTLE SWISH/SPIT SCH ×2 (09:00→20:24)
[2020-12-29] MEDS: ASPIRIN EC 325 MG TABLET PO SCH (10:30)
[2020-12-29] MEDS: DILTIAZEM 30 MG TABLET PO SCH ×3 (10:30→20:09)
[2020-12-29] MEDS: ISOSORBIDE MONONITRATE 30 MG TABLET PO SCH (10:30)
[2020-12-29] MEDS: FUROSEMIDE 20 MG TABLET PO SCH (10:30)
[2020-12-29] MEDS: cloNIDine 0.1 MG TABLET PO SCH ×2 (10:30→20:01)
[2020-12-29] MEDS: CLORAZEPATE 3.75 MG TABLET PO PRN ×2 (10:30→20:01)
[2020-12-29] MEDS: LOSARTAN 25 MG TABLET PO SCH (10:30)
[2020-12-29] MEDS: METOPROLOL TARTRATE 50 MG TABLET PO SCH ×2 (10:30→20:01)
[2020-12-29] MEDS: ASCORBIC ACID 500 MG TABLET PO SCH ×2 (10:30→20:01)
[2020-12-29] MEDS: PANTOPRAZOLE 40 MG TABLET PO SCH (10:30)
[2020-12-29] MEDS: ASPIRIN EC 81 MG TABLET PO SCH (11:20)
[2020-12-29] MEDS: INSULIN REGULAR 100 UNIT/ML SUBCUT SCH ×3 (12:18→20:24)
[2020-12-29] MEDS: AMIODARONE 200 MG TABLET PO SCH ×2 (13:00→20:01)
[2020-12-29] MEDS: DILTIAZEM INJ 100 MG in SODIUM CHLORIDE 0.9% 100 ML IV SCH (13:52)
[2020-12-29] MEDS: SODIUM CHLORIDE 0.45% 1,000 ML IV SCH ×2 (14:13)
[2020-12-29] MEDS: TAMSULOSIN 0.4 MG CAPSULE PO SCH (20:24)
[2020-12-30 05:08] LABS: Basophils % 0.1 % (0.0-0.8); Hematocrit 31.5 VOL% (42.0-52.0); Hemoglobin 10.6 GM/DL (14.0-18.0); Immature Granulocytes % 0.9 %; Lymphocytes # 0.4 10*3/uL (1.4-4.0); Lymphocytes % 3.9 % (21.2-54.2); Mean Corpuscular HGB Conc 33.7 GM/DL (32-36); Mean Corpuscular Volume 88.7 FL (87-102); Mean Platelet Volume 10.5 FL (9.6-12.0); Monocytes % 4.1 % (1.7-12.7); Platelet Count 150 T/CUMM (130-400); Red Blood Count 3.55 MC/CUMM (3.8-5.5); Red Cell Distribution Width 14.2 % (9.3-17.3); White Blood Count 10.6 T/CUMM (4-12)
[2020-12-30 05:24] LABS: CKMB % 7.1 %
[2020-12-30 05:25] LABS: Troponin I 21.6 NG/ML (0.00-0.045)
[2020-12-30 05:26] LABS: Calcium 8.2 MG/DL (8.5-10.1); Osmolality,Calculated 286.4 MOS/KG (273-304); Potassium 4.1 MMOL/L (3.5-5.1)
[2020-12-30 05:28] LABS: Hypochromasia 1+; Lymphocytes 7 % (20-55); Microcytosis 1+; Platelet Estimate Adequate; Segmented Neutrophils 88 % (50-85); Total Cells Counted 100
[2020-12-30] MEDS: methylPREDNISolone SOD SUC 40 MG/1 ML VIAL IV SCH (06:21)
[2020-12-30] MEDS: ALBUTEROL/IPRATROPIUM 3 ML NEB RESP TX SCH (07:55)
[2020-12-30] MEDS: INSULIN REGULAR 100 UNIT/ML SUBCUT SCH ×3 (08:19→20:15)
[2020-12-30] MEDS: METOPROLOL TARTRATE 50 MG TABLET PO SCH ×2 (09:33→20:12)
[2020-12-30] MEDS: FUROSEMIDE 20 MG TABLET PO SCH (09:33)
[2020-12-30] MEDS: ASPIRIN EC 325 MG TABLET PO SCH (09:34)
[2020-12-30] MEDS: predniSONE 10 MG TABLET PO SCH ×2 (09:36→20:11)
[2020-12-30] MEDS: ASCORBIC ACID 500 MG TABLET PO SCH ×2 (09:36→20:11)
[2020-12-30] MEDS: PANTOPRAZOLE 40 MG TABLET PO SCH (09:38)
[2020-12-30] MEDS: ISOSORBIDE MONONITRATE 30 MG TABLET PO SCH (09:38)
[2020-12-30] MEDS: DILTIAZEM 30 MG TABLET PO SCH ×3 (09:38→20:12)
[2020-12-30] MEDS: AMIODARONE 200 MG TABLET PO SCH ×2 (09:38→20:11)
[2020-12-30] MEDS: POTASSIUM CHLORIDE RIDER 20 MEQ in PREMIX 1 EACH IV PRN (09:39)
[2020-12-30] MEDS: CHLORHEXIDINE 0.12% ORAL RINSE 60 ML BOTTLE SWISH/SPIT SCH ×2 (09:39→20:14)
[2020-12-30] MEDS ORDERED: MAGNESIUM HYDROXIDE SUSP 30 ML UDCUP PO PRN (09:59)
[2020-12-30] MEDS ORDERED: ALUMINUM/MAGNES/SIMETH MAX STR 30 ML UDCUP PO PRN (09:59)
[2020-12-30] MEDS ORDERED: GLUCAGON 1 MG VIAL IM PRN (09:59)
[2020-12-30] MEDS ORDERED: DEXTROSE 50% 25 GM/50 ML VIAL IV PRN (09:59)
[2020-12-30] MEDS ORDERED: MAGNESIUM SULF RIDER 2 GM in PREMIX 1 EACH IV PRN (09:59)
[2020-12-30] MEDS ORDERED: MAGNESIUM SULF RIDER 4 GM in PREMIX 1 EACH IV PRN (09:59)
[2020-12-30] MEDS ORDERED: ONDANSETRON 4 MG/2 ML VIAL IV PRN (09:59)
[2020-12-30] MEDS ORDERED: ACETAMINOPHEN 325 MG TABLET PO PRN (09:59)
[2020-12-30] MEDS ORDERED: SODIUM CHLOR 0.45% KCL 20 MEQ 20 MEQ/1,000 ML BAG IV SCH (10:00)
[2020-12-30] MEDS: cloNIDine 0.1 MG TABLET PO SCH (10:19)
[2020-12-30] MEDS: LOSARTAN 25 MG TABLET PO SCH ×2 (11:31→20:12)
[2020-12-30] MEDS: CLORAZEPATE 3.75 MG TABLET PO PRN (20:11)
[2020-12-30] MEDS: ZALEPLON 5 MG CAPSULE PO PRN (20:11)
[2020-12-30] MEDS: TAMSULOSIN 0.4 MG CAPSULE PO SCH (20:11)
[2020-12-30] MEDS: ROSUVASTATIN 20 MG TABLET PO SCH (20:15)
[2020-12-30] MEDS: APIXABAN 5 MG TABLET PO SCH (20:15)
[2020-12-30] MEDS: ALBUTEROL 2.5 MG/3 ML NEB RESP TX PRN (22:35)
[2020-12-31 04:51] LABS: Basophils % 0.1 % (0.0-0.8); Hematocrit 32.6 VOL% (42.0-52.0); Hemoglobin 10.9 GM/DL (14.0-18.0); Immature Granulocytes % 1.4 %; Immature Granulocytes Absolute 0.18 #; Lymphocytes # 0.4 10*3/uL (1.4-4.0); Lymphocytes % 3.4 % (21.2-54.2); Mean Corpuscular HGB Conc 33.4 GM/DL (32-36); Mean Corpuscular Volume 90.3 FL (87-102); Mean Platelet Volume 9.9 FL (9.6-12.0); Monocytes % 5.4 % (1.7-12.7); Neutrophils % 89.7 % (38.7-73.9); Platelet Count 186 T/CUMM (130-400); Red Blood Count 3.61 MC/CUMM (3.8-5.5); Red Cell Distribution Width 14.5 % (9.3-17.3); White Blood Count 12.7 T/CUMM (4-12)
[2020-12-31 05:11] LABS: Band Neutrophils 1 % (0-10); Hypochromasia 1+; Lymphocytes 3 % (20-55); Microcytosis 1+; Ovalocytes Slight; Segmented Neutrophils 93 % (50-85); Total Cells Counted 100
[2020-12-31 05:12] LABS: Calcium 7.9 MG/DL (8.5-10.1); Osmolality,Calculated 287.4 MOS/KG (273-304); Potassium 4.3 MMOL/L (3.5-5.1)
[2020-12-31 05:13] LABS: Platelet Estimate Adequate
[2020-12-31 05:18] LABS: Alanine Aminotransferase 62 U/L (16-61); Albumin 2.6 G/DL (3.4-5.0); Alkaline Phosphatase 154 U/L (45-117); Aspartate Amino Transferase 27 U/L (0-37); Bilirubin,Indirect 0.9 MG/DL (0.0-1.0); Blood Urea Nitrogen 34 MG/DL (7-18); Calcium 8.3 MG/DL (8.5-10.1); Carbon Dioxide 27 MMOL/L (21-32); Estimated Glom Filtration Rate 101 ML/MIN; Glucose 119 MG/DL (74-106); Osmolality,Calculated 285.5 MOS/KG (273-304); Potassium 4.2 MMOL/L (3.5-5.1); Sodium 139 MMOL/L (136-145)
[2020-12-31] MEDS: INSULIN REGULAR 100 UNIT/ML SUBCUT SCH (07:57)
[2020-12-31] MEDS: ASPIRIN EC 81 MG TABLET PO SCH (08:56)
[2020-12-31] MEDS: DILTIAZEM 30 MG TABLET PO SCH ×3 (08:56→20:54)
[2020-12-31] MEDS: DOCUSATE SODIUM 100 MG CAPSULE PO SCH (08:56)
[2020-12-31] MEDS: METOPROLOL TARTRATE 50 MG TABLET PO SCH ×2 (08:57→20:57)
[2020-12-31] MEDS: predniSONE 10 MG TABLET PO SCH ×2 (08:57→20:58)
[2020-12-31] MEDS: APIXABAN 5 MG TABLET PO SCH ×2 (08:57→20:58)
[2020-12-31] MEDS: LOSARTAN 25 MG TABLET PO SCH ×2 (08:58→20:57)
[2020-12-31] MEDS: FUROSEMIDE 20 MG TABLET PO SCH (08:58)
[2020-12-31] MEDS: AMIODARONE 200 MG TABLET PO SCH ×2 (08:58→20:58)
[2020-12-31] MEDS: ISOSORBIDE MONONITRATE 30 MG TABLET PO SCH (08:58)
[2020-12-31] MEDS: PANTOPRAZOLE 40 MG TABLET PO SCH (08:59)
[2020-12-31] MEDS: FERROUS SULFATE 325 MG TABLET PO SCH (08:59)
[2020-12-31] MEDS: POLYETHYLENE GLYCOL POWDER 17 GM PACK PO SCH (08:59)
[2020-12-31] MEDS: ASCORBIC ACID 500 MG TABLET PO SCH ×2 (08:59→20:57)
[2020-12-31] MEDS: CHLORHEXIDINE 0.12% ORAL RINSE 60 ML BOTTLE SWISH/SPIT SCH ×2 (09:00→21:04)
[2020-12-31] MEDS ORDERED: METOPROLOL TARTRATE 50 MG TABLET PO SCH (09:30)
[2020-12-31] MEDS: ALBUTEROL 2.5 MG/3 ML NEB RESP TX PRN (15:40)
[2020-12-31] MEDS: CLORAZEPATE 3.75 MG TABLET PO PRN (20:54)
[2020-12-31] MEDS: ROSUVASTATIN 20 MG TABLET PO SCH (20:54)
[2020-12-31] MEDS: TAMSULOSIN 0.4 MG CAPSULE PO SCH (20:58)
[2021-01-01] MEDS: ALBUTEROL 2.5 MG/3 ML NEB RESP TX PRN (00:55)
[2021-01-01] MEDS: CLORAZEPATE 3.75 MG TABLET PO PRN (02:12)
[2021-01-01 04:48] LABS: Basophils # 0.1 10*3/uL (0.0-0.2); Basophils % 0.4 % (0.0-0.8); Eosinophils % 0.2 % (0.00-10.9); Hematocrit 33.4 VOL% (42.0-52.0); Hemoglobin 11.2 GM/DL (14.0-18.0); Immature Granulocytes % 2.6 %; Immature Granulocytes Absolute 0.46 #; Lymphocytes # 0.6 10*3/uL (1.4-4.0); Lymphocytes % 3.2 % (21.2-54.2); Mean Corpuscular HGB Conc 33.5 GM/DL (32-36); Mean Platelet Volume 9.9 FL (9.6-12.0); Monocytes % 7.9 % (1.7-12.7); Neutrophils % 85.7 % (38.7-73.9); Platelet Count 247 T/CUMM (130-400); Red Blood Count 3.71 MC/CUMM (3.8-5.5); Red Cell Distribution Width 14.5 % (9.3-17.3)
[2021-01-01 05:01] LABS: Calcium 8.2 MG/DL (8.5-10.1); Osmolality,Calculated 288.3 MOS/KG (273-304); Potassium 4.4 MMOL/L (3.5-5.1)
[2021-01-01 05:07] LABS: Alanine Aminotransferase 76 U/L (16-61); Albumin 2.6 G/DL (3.4-5.0); Alkaline Phosphatase 156 U/L (45-117); Aspartate Amino Transferase 42 U/L (0-37); Blood Urea Nitrogen 32 MG/DL (7-18); Carbon Dioxide 28 MMOL/L (21-32); Estimated Glom Filtration Rate 106 ML/MIN; Glucose 108 MG/DL (74-106); Osmolality,Calculated 290.1 MOS/KG (273-304); Potassium 4.5 MMOL/L (3.5-5.1); Sodium 142 MMOL/L (136-145); Total Protein 4.8 G/DL (6.4-8.2)
[2021-01-01 05:10] LABS: Band Neutrophils 1 % (0-10); Lymphocytes 6 % (20-55); Segmented Neutrophils 86 % (50-85); Total Cells Counted 100
[2021-01-01 05:11] LABS: Microcytosis 1+; Platelet Estimate Normal
[2021-01-01] MEDS: ALBUTEROL/IPRATROPIUM 3 ML NEB RESP TX SCH ×4 (07:52→19:20)
[2021-01-01] MEDS: FERROUS SULFATE 325 MG TABLET PO SCH (09:07)
[2021-01-01] MEDS: METOPROLOL TARTRATE 50 MG TABLET PO SCH ×2 (09:07→20:00)
[2021-01-01] MEDS: PANTOPRAZOLE 40 MG TABLET PO SCH (09:07)
[2021-01-01] MEDS: AMIODARONE 200 MG TABLET PO SCH ×2 (09:07→20:00)
[2021-01-01] MEDS: ISOSORBIDE MONONITRATE 30 MG TABLET PO SCH (09:07)
[2021-01-01] MEDS: APIXABAN 5 MG TABLET PO SCH ×2 (09:07→20:00)
[2021-01-01] MEDS: FUROSEMIDE 20 MG TABLET PO SCH (09:07)
[2021-01-01] MEDS: ASCORBIC ACID 500 MG TABLET PO SCH ×2 (09:08→20:00)
[2021-01-01] MEDS: DILTIAZEM 30 MG TABLET PO SCH (09:08)
[2021-01-01] MEDS: ASPIRIN EC 81 MG TABLET PO SCH (09:08)
[2021-01-01] MEDS: DOCUSATE SODIUM 100 MG CAPSULE PO SCH (09:08)
[2021-01-01] MEDS: LOSARTAN 25 MG TABLET PO SCH ×2 (09:08→20:00)
[2021-01-01] MEDS: predniSONE 10 MG TABLET PO SCH (09:08)
[2021-01-01] MEDS: CHLORHEXIDINE 0.12% ORAL RINSE 60 ML BOTTLE SWISH/SPIT SCH ×2 (09:10→20:00)
[2021-01-01] MEDS: POLYETHYLENE GLYCOL POWDER 17 GM PACK PO SCH (09:10)
[2021-01-01] MEDS: DILTIAZEM CD 120 MG CAPSULE PO SCH (10:18)
[2021-01-01] MEDS: CHLORTHALIDONE 25 MG TABLET PO SCH (10:18)
[2021-01-01] MEDS: TAMSULOSIN 0.4 MG CAPSULE PO SCH (20:00)
[2021-01-01] MEDS: ROSUVASTATIN 20 MG TABLET PO SCH (20:00)
[2021-01-02] MEDS: ALBUTEROL/IPRATROPIUM 3 ML NEB RESP TX SCH ×7 (00:16→23:24)
[2021-01-02 05:43] LABS: Basophils % 0.2 % (0.0-0.8); Eosinophils % 0.2 % (0.00-10.9); Hemoglobin 11.2 GM/DL (14.0-18.0); Immature Granulocytes % 4.3 %; Immature Granulocytes Absolute 0.77 #; Lymphocytes # 0.9 10*3/uL (1.4-4.0); Mean Corpuscular Volume 91.4 FL (87-102); Mean Platelet Volume 10.2 FL (9.6-12.0); Monocytes % 7.6 % (1.7-12.7); Neutrophils % 82.7 % (38.7-73.9); Platelet Count 302 T/CUMM (130-400); Red Blood Count 3.83 MC/CUMM (3.8-5.5); Red Cell Distribution Width 14.3 % (9.3-17.3); White Blood Count 17.7 T/CUMM (4-12)
[2021-01-02 05:47] LABS: Calcium 8.4 MG/DL (8.5-10.1); Osmolality,Calculated 286.4 MOS/KG (273-304); Potassium 3.6 MMOL/L (3.5-5.1)
[2021-01-02 06:08] LABS: Hypochromasia 1+; Lymphocytes 5 % (20-55); Microcytosis 1+; Platelet Estimate Normal; Segmented Neutrophils 88 % (50-85); Total Cells Counted 100
[2021-01-02] MEDS: DILTIAZEM CD 120 MG CAPSULE PO SCH (09:11)
[2021-01-02] MEDS: POLYETHYLENE GLYCOL POWDER 17 GM PACK PO SCH (09:11)
[2021-01-02] MEDS: predniSONE 10 MG TABLET PO SCH (09:11)
[2021-01-02] MEDS: FUROSEMIDE 20 MG TABLET PO SCH (09:11)
[2021-01-02] MEDS: CHLORTHALIDONE 25 MG TABLET PO SCH (09:12)
[2021-01-02] MEDS: DOCUSATE SODIUM 100 MG CAPSULE PO SCH (09:12)
[2021-01-02] MEDS: ASCORBIC ACID 500 MG TABLET PO SCH ×3 (09:12→21:31)
[2021-01-02] MEDS: METOPROLOL TARTRATE 50 MG TABLET PO SCH ×3 (09:12→21:31)
[2021-01-02] MEDS: PANTOPRAZOLE 40 MG TABLET PO SCH (09:13)
[2021-01-02] MEDS: ASPIRIN EC 81 MG TABLET PO SCH (09:13)
[2021-01-02] MEDS: AMIODARONE 200 MG TABLET PO SCH ×2 (09:13→21:28)
[2021-01-02] MEDS: CHLORHEXIDINE 0.12% ORAL RINSE 60 ML BOTTLE SWISH/SPIT SCH ×2 (09:13→21:34)
[2021-01-02] MEDS: APIXABAN 5 MG TABLET PO SCH ×2 (09:13→21:30)
[2021-01-02] MEDS: LOSARTAN 25 MG TABLET PO SCH ×2 (09:13→21:29)
[2021-01-02] MEDS: ISOSORBIDE MONONITRATE 30 MG TABLET PO SCH (09:13)
[2021-01-02] MEDS: FERROUS SULFATE 325 MG TABLET PO SCH (09:13)
[2021-01-02] MEDS: ROSUVASTATIN 20 MG TABLET PO SCH (21:29)
[2021-01-02] MEDS: TAMSULOSIN 0.4 MG CAPSULE PO SCH (21:30)
[2021-01-03] MEDS: ALBUTEROL/IPRATROPIUM 3 ML NEB RESP TX SCH ×6 (03:05→23:40)
[2021-01-03 06:16] LABS: Basophils % 0.2 % (0.0-0.8); Eosinophils # 0.1 10*3/uL (0.0-0.87); Eosinophils % 0.8 % (0.00-10.9); Hematocrit 35.8 VOL% (42.0-52.0); Hemoglobin 11.5 GM/DL (14.0-18.0); Immature Granulocytes % 5.8 %; Immature Granulocytes Absolute 0.99 #; Lymphocytes # 0.9 10*3/uL (1.4-4.0); Lymphocytes % 5.4 % (21.2-54.2); Mean Corpuscular HGB Conc 32.1 GM/DL (32-36); Mean Corpuscular Volume 91.8 FL (87-102); Mean Platelet Volume 9.5 FL (9.6-12.0); Monocytes % 7.8 % (1.7-12.7); Platelet Count 307 T/CUMM (130-400); Red Cell Distribution Width 14.5 % (9.3-17.3)
[2021-01-03 06:39] LABS: Alanine Aminotransferase 61 U/L (16-61); Albumin 2.6 G/DL (3.4-5.0); Alkaline Phosphatase 138 U/L (45-117); Aspartate Amino Transferase 28 U/L (0-37); Blood Urea Nitrogen 28 MG/DL (7-18); Calcium 8.2 MG/DL (8.5-10.1); Carbon Dioxide 30 MMOL/L (21-32); Estimated Glom Filtration Rate 98 ML/MIN; Glucose 92 MG/DL (74-106); Osmolality,Calculated 280.7 MOS/KG (273-304); Potassium 3.6 MMOL/L (3.5-5.1); Sodium 138 MMOL/L (136-145); Total Protein 5.2 G/DL (6.4-8.2)
[2021-01-03 06:51] LABS: Lymphocytes 2 % (20-55); Metamyelocytes 1 %; Platelet Estimate Normal; Polychromasia Slight; Segmented Neutrophils 88 % (50-85); Total Cells Counted 100
[2021-01-03] MEDS ORDERED: FUROSEMIDE 40 MG/4 ML VIAL IV ONE (08:37)
[2021-01-03] MEDS: POLYETHYLENE GLYCOL POWDER 17 GM PACK PO SCH (09:04)
[2021-01-03] MEDS: ASPIRIN EC 81 MG TABLET PO SCH (09:04)
[2021-01-03] MEDS: METOPROLOL TARTRATE 50 MG TABLET PO SCH ×2 (09:04→21:12)
[2021-01-03] MEDS: DOCUSATE SODIUM 100 MG CAPSULE PO SCH (09:04)
[2021-01-03] MEDS: AMIODARONE 200 MG TABLET PO SCH ×2 (09:04→21:11)
[2021-01-03] MEDS: CHLORTHALIDONE 25 MG TABLET PO SCH (09:04)
[2021-01-03] MEDS: LOSARTAN 25 MG TABLET PO SCH ×2 (09:04→21:11)
[2021-01-03] MEDS: DILTIAZEM CD 120 MG CAPSULE PO SCH (09:04)
[2021-01-03] MEDS: FERROUS SULFATE 325 MG TABLET PO SCH (09:05)
[2021-01-03] MEDS: ASCORBIC ACID 500 MG TABLET PO SCH ×2 (09:05→21:13)
[2021-01-03] MEDS: APIXABAN 5 MG TABLET PO SCH ×2 (09:05→21:12)
[2021-01-03] MEDS: FUROSEMIDE 20 MG TABLET PO SCH (09:05)
[2021-01-03] MEDS: PANTOPRAZOLE 40 MG TABLET PO SCH (09:05)
[2021-01-03] MEDS: ISOSORBIDE MONONITRATE 30 MG TABLET PO SCH (09:05)
[2021-01-03] MEDS: CHLORHEXIDINE 0.12% ORAL RINSE 60 ML BOTTLE SWISH/SPIT SCH ×2 (09:06→21:20)
[2021-01-03] MEDS ORDERED: AMIODARONE INJ 100 MG in DEXTROSE 5% 100 ML IV ONE (09:11)
[2021-01-03] MEDS ORDERED: POTASSIUM CHLORIDE 20 MEQ TABLET PO ONE (11:06)
[2021-01-03] MEDS: ALBUTEROL 2.5 MG/3 ML NEB RESP TX PRN (17:51)
[2021-01-03] MEDS: ROSUVASTATIN 20 MG TABLET PO SCH (21:11)
[2021-01-03] MEDS: TAMSULOSIN 0.4 MG CAPSULE PO SCH (21:12)
[2021-01-04] MEDS: ALBUTEROL/IPRATROPIUM 3 ML NEB RESP TX SCH ×6 (03:20→23:20)
[2021-01-04 04:48] LABS: Basophils % 0.2 % (0.0-0.8); Eosinophils # 0.2 10*3/uL (0.0-0.87); Eosinophils % 0.8 % (0.00-10.9); Hematocrit 35.9 VOL% (42.0-52.0); Hemoglobin 11.6 GM/DL (14.0-18.0); Immature Granulocytes % 5.7 %; Immature Granulocytes Absolute 1.14 #; Lymphocytes # 0.7 10*3/uL (1.4-4.0); Lymphocytes % 3.7 % (21.2-54.2); Mean Corpuscular HGB Conc 32.3 GM/DL (32-36); Mean Corpuscular Volume 92.5 FL (87-102); Mean Platelet Volume 9.9 FL (9.6-12.0); Monocytes % 7.1 % (1.7-12.7); Neutrophils % 82.5 % (38.7-73.9); Platelet Count 340 T/CUMM (130-400); Red Blood Count 3.88 MC/CUMM (3.8-5.5); Red Cell Distribution Width 14.5 % (9.3-17.3)
[2021-01-04 05:07] LABS: Calcium 7.9 MG/DL (8.5-10.1); Osmolality,Calculated 282.7 MOS/KG (273-304); Potassium 3.6 MMOL/L (3.5-5.1)
[2021-01-04 05:13] LABS: Alanine Aminotransferase 51 U/L (16-61); Albumin 2.6 G/DL (3.4-5.0); Alkaline Phosphatase 153 U/L (45-117); Aspartate Amino Transferase 27 U/L (0-37); Bilirubin,Indirect 0.6 MG/DL (0.0-1.0); Blood Urea Nitrogen 31 MG/DL (7-18); Calcium 8.4 MG/DL (8.5-10.1); Carbon Dioxide 31 MMOL/L (21-32); Estimated Glom Filtration Rate 100 ML/MIN; Glucose 125 MG/DL (74-106); Osmolality,Calculated 277.1 MOS/KG (273-304); Potassium 3.4 MMOL/L (3.5-5.1); Sodium 135 MMOL/L (136-145); Total Protein 5.5 G/DL (6.4-8.2)
[2021-01-04 05:26] LABS: Lymphocytes 4 % (20-55); Metamyelocytes 1 %; Segmented Neutrophils 91 % (50-85); Total Cells Counted 100
[2021-01-04 05:28] LABS: Microcytosis Slight; Polychromasia 1+
[2021-01-04 05:29] LABS: Anisocytosis Slight
[2021-01-04 05:30] LABS: Platelet Estimate Increased
[2021-01-04] MEDS ORDERED: MAGNESIUM SULF RIDER 2 GM in PREMIX 1 EACH IV ONE (08:08)
[2021-01-04] MEDS ORDERED: POTASSIUM CHLORIDE 20 MEQ TABLET PO ONE (08:08)
[2021-01-04] MEDS: POLYETHYLENE GLYCOL POWDER 17 GM PACK PO SCH (08:45)
[2021-01-04] MEDS: DOCUSATE SODIUM 100 MG CAPSULE PO SCH (08:46)
[2021-01-04] MEDS: APIXABAN 5 MG TABLET PO SCH ×2 (08:46→21:25)
[2021-01-04] MEDS: PANTOPRAZOLE 40 MG TABLET PO SCH (08:46)
[2021-01-04] MEDS: AMIODARONE 200 MG TABLET PO SCH ×2 (08:46→21:25)
[2021-01-04] MEDS: DILTIAZEM CD 120 MG CAPSULE PO SCH (08:46)
[2021-01-04] MEDS: ASCORBIC ACID 500 MG TABLET PO SCH ×2 (08:46→21:24)
[2021-01-04] MEDS: CHLORTHALIDONE 25 MG TABLET PO SCH (08:46)
[2021-01-04] MEDS: FERROUS SULFATE 325 MG TABLET PO SCH (08:47)
[2021-01-04] MEDS: FUROSEMIDE 20 MG TABLET PO SCH (08:47)
[2021-01-04] MEDS: ASPIRIN EC 81 MG TABLET PO SCH (08:47)
[2021-01-04] MEDS: METOPROLOL TARTRATE 50 MG TABLET PO SCH ×2 (08:47→21:24)
[2021-01-04] MEDS: ISOSORBIDE MONONITRATE 30 MG TABLET PO SCH (08:47)
[2021-01-04] MEDS: LOSARTAN 25 MG TABLET PO SCH ×2 (08:47→21:25)
[2021-01-04] MEDS: CHLORHEXIDINE 0.12% ORAL RINSE 60 ML BOTTLE SWISH/SPIT SCH ×2 (08:48→21:30)
[2021-01-04] MEDS ORDERED: LACTULOSE 20 GM/30 ML UDCUP PO ONE (09:04)
[2021-01-04] MEDS ORDERED: LACTULOSE 20 GM/30 ML UDCUP PO PRN (09:04)
[2021-01-04] MEDS: predniSONE 5 MG TABLET PO SCH (10:05)
[2021-01-04] MEDS: PHENAZOPYRIDINE 95 MG TABLET PO SCH (17:13)
[2021-01-04] MEDS: CLORAZEPATE 3.75 MG TABLET PO PRN (19:43)
[2021-01-04] MEDS: ROSUVASTATIN 20 MG TABLET PO SCH (21:24)
[2021-01-04] MEDS: TAMSULOSIN 0.4 MG CAPSULE PO SCH (21:25)
[2021-01-05] MEDS: ALBUTEROL/IPRATROPIUM 3 ML NEB RESP TX SCH ×6 (02:40→23:38)
[2021-01-05 06:02] LABS: Basophils % 0.2 % (0.0-0.8); Eosinophils # 0.1 10*3/uL (0.0-0.87); Eosinophils % 0.2 % (0.00-10.9); Hematocrit 31.1 VOL% (42.0-52.0); Hemoglobin 10.2 GM/DL (14.0-18.0); Immature Granulocytes % 2.7 %; Lymphocytes # 0.6 10*3/uL (1.4-4.0); Lymphocytes % 2.3 % (21.2-54.2); Mean Corpuscular HGB Conc 32.8 GM/DL (32-36); Mean Corpuscular Volume 91.7 FL (87-102); Mean Platelet Volume 10.6 FL (9.6-12.0); Monocytes % 4.9 % (1.7-12.7); Neutrophils % 89.7 % (38.7-73.9); Platelet Count 315 T/CUMM (130-400); Red Blood Count 3.39 MC/CUMM (3.8-5.5); Red Cell Distribution Width 14.8 % (9.3-17.3); White Blood Count 25.6 T/CUMM (4-12)
[2021-01-05 06:16] LABS: Calcium 8.3 MG/DL (8.5-10.1); Potassium 3.9 MMOL/L (3.5-5.1)
[2021-01-05 06:58] LABS: Eosinophils 1 % (0-10); Hypochromasia 1+; Lymphocytes 2 % (20-55); Microcytosis 1+; Ovalocytes Slight; Segmented Neutrophils 92 % (50-85); Total Cells Counted 100
[2021-01-05 06:59] LABS: Platelet Estimate Normal
[2021-01-05] MEDS ORDERED: DIGOXIN 0.5 MG/2 ML AMP IV ONE (07:48)
[2021-01-05] MEDS: DILTIAZEM CD 120 MG CAPSULE PO SCH ×2 (09:45→20:30)
[2021-01-05] MEDS: CHLORTHALIDONE 25 MG TABLET PO SCH (10:10)
[2021-01-05] MEDS: TAMSULOSIN 0.4 MG CAPSULE PO SCH ×2 (10:10→20:30)
[2021-01-05] MEDS: PANTOPRAZOLE 40 MG TABLET PO SCH (10:10)
[2021-01-05] MEDS: ASCORBIC ACID 500 MG TABLET PO SCH ×2 (10:10→20:30)
[2021-01-05] MEDS: AMIODARONE 200 MG TABLET PO SCH ×2 (10:10→20:31)
[2021-01-05] MEDS: ASPIRIN EC 81 MG TABLET PO SCH (10:10)
[2021-01-05] MEDS: FERROUS SULFATE 325 MG TABLET PO SCH (10:10)
[2021-01-05] MEDS: predniSONE 5 MG TABLET PO SCH (10:10)
[2021-01-05] MEDS: CHLORHEXIDINE 0.12% ORAL RINSE 60 ML BOTTLE SWISH/SPIT SCH ×2 (10:10→20:31)
[2021-01-05] MEDS: PHENAZOPYRIDINE 95 MG TABLET PO SCH ×2 (10:10→18:39)
[2021-01-05] MEDS: DOCUSATE SODIUM 100 MG CAPSULE PO SCH (10:10)
[2021-01-05] MEDS: FUROSEMIDE 20 MG TABLET PO SCH (10:10)
[2021-01-05] MEDS: LOSARTAN 25 MG TABLET PO SCH ×2 (12:32→20:31)
[2021-01-05] MEDS: APIXABAN 5 MG TABLET PO SCH ×2 (12:33→20:30)
[2021-01-05] MEDS: ISOSORBIDE MONONITRATE 30 MG TABLET PO SCH (12:35)
[2021-01-05] MEDS: POLYETHYLENE GLYCOL POWDER 17 GM PACK PO SCH (12:35)
[2021-01-05] MEDS: METOPROLOL TARTRATE 50 MG TABLET PO SCH ×2 (12:35→20:31)
[2021-01-05] MEDS: CLORAZEPATE 3.75 MG TABLET PO PRN (19:07)
[2021-01-05] MEDS: ROSUVASTATIN 20 MG TABLET PO SCH (20:30)
[2021-01-05 23:13] LABS: Bilirubin,Urine Negative (Negative); Blood, Urine Small mg/dL (Negative); Glucose,Urine (UA) Negative (Negative); Hyaline Casts,Urine 1 /LPF (0-3); Ketones,Urine Negative (Negative); Mucus,Urine Occasional /LPF (Occasional); Nitrite,Urine Negative (Negative); Protein,Urine Negative; RBC,Urine 36 /HPF (0-4); Urine Appearance CLEAR (Clear); Urine Color Amber (Yellow); Urine Specific Gravity 1.015 (1.001-1.035); WBC,Urine 10 /HPF (0-6)
[2021-01-06] MEDS: ALBUTEROL/IPRATROPIUM 3 ML NEB RESP TX SCH ×5 (04:07→23:20)
[2021-01-06 05:56] LABS: Basophils % 0.1 % (0.0-0.8); Eosinophils # 0.2 10*3/uL (0.0-0.87); Eosinophils % 1.1 % (0.00-10.9); Hematocrit 27.5 VOL% (42.0-52.0); Hemoglobin 9.1 GM/DL (14.0-18.0); Immature Granulocytes % 2.4 %; Immature Granulocytes Absolute 0.35 #; Lymphocytes # 0.5 10*3/uL (1.4-4.0); Lymphocytes % 3.5 % (21.2-54.2); Mean Corpuscular HGB Conc 33.1 GM/DL (32-36); Mean Corpuscular Volume 90.5 FL (87-102); Mean Platelet Volume 10.6 FL (9.6-12.0); Monocytes % 6.8 % (1.7-12.7); Neutrophils % 86.1 % (38.7-73.9); Platelet Count 284 T/CUMM (130-400); Red Blood Count 3.04 MC/CUMM (3.8-5.5); Red Cell Distribution Width 14.7 % (9.3-17.3); White Blood Count 14.4 T/CUMM (4-12)
[2021-01-06 06:14] LABS: Osmolality,Calculated 274.4 MOS/KG (273-304); Potassium 3.7 MMOL/L (3.5-5.1)
[2021-01-06 06:26] LABS: Albumin 2.2 G/DL (3.4-5.0); Bilirubin,Total 1.1 MG/DL (0.2-1.0); Calcium 7.8 MG/DL (8.5-10.1); Total Protein 4.4 G/DL (6.4-8.2)
[2021-01-06 06:41] LABS: Eosinophils 1 % (0-10); Lymphocytes 2 % (20-55); Segmented Neutrophils 93 % (50-85); Total Cells Counted 100
[2021-01-06 06:42] LABS: Platelet Estimate Normal
[2021-01-06] MEDS: ASPIRIN EC 81 MG TABLET PO SCH (10:12)
[2021-01-06] MEDS: AMIODARONE 200 MG TABLET PO SCH ×2 (10:12→20:32)
[2021-01-06] MEDS: FERROUS SULFATE 325 MG TABLET PO SCH (10:13)
[2021-01-06] MEDS: CHLORTHALIDONE 25 MG TABLET PO SCH (10:13)
[2021-01-06] MEDS: LOSARTAN 25 MG TABLET PO SCH ×2 (10:13→20:32)
[2021-01-06] MEDS: METOPROLOL TARTRATE 50 MG TABLET PO SCH ×2 (10:13→20:32)
[2021-01-06] MEDS: DOCUSATE SODIUM 100 MG CAPSULE PO SCH (10:13)
[2021-01-06] MEDS: PHENAZOPYRIDINE 95 MG TABLET PO SCH ×2 (10:13→17:50)
[2021-01-06] MEDS: FUROSEMIDE 20 MG TABLET PO SCH (10:14)
[2021-01-06] MEDS: APIXABAN 5 MG TABLET PO SCH ×2 (10:14→20:32)
[2021-01-06] MEDS: ISOSORBIDE MONONITRATE 30 MG TABLET PO SCH (10:14)
[2021-01-06] MEDS: TAMSULOSIN 0.4 MG CAPSULE PO SCH ×2 (10:14→20:32)
[2021-01-06] MEDS: PANTOPRAZOLE 40 MG TABLET PO SCH (10:14)
[2021-01-06] MEDS: ASCORBIC ACID 500 MG TABLET PO SCH ×2 (10:14→20:32)
[2021-01-06] MEDS: CHLORHEXIDINE 0.12% ORAL RINSE 60 ML BOTTLE SWISH/SPIT SCH ×2 (10:15→20:33)
[2021-01-06] MEDS: DILTIAZEM CD 120 MG CAPSULE PO SCH ×2 (10:15→20:32)
[2021-01-06] MEDS: SULFAMETHOX/TRIMETHOPRIM 800-160 MG TABLET PO SCH ×2 (10:49→21:38)
[2021-01-06] MEDS: POLYETHYLENE GLYCOL POWDER 17 GM PACK PO SCH (15:39)
[2021-01-06] MEDS: CLORAZEPATE 3.75 MG TABLET PO PRN (17:50)
[2021-01-06] MEDS: ROSUVASTATIN 20 MG TABLET PO SCH (20:32)
[2021-01-07] MEDS: ALBUTEROL/IPRATROPIUM 3 ML NEB RESP TX SCH ×7 (03:20→23:50)
[2021-01-07 05:24] LABS: Basophils % 0.1 % (0.0-0.8); Eosinophils # 0.2 10*3/uL (0.0-0.87); Eosinophils % 1.2 % (0.00-10.9); Hematocrit 26.6 VOL% (42.0-52.0); Hemoglobin 8.8 GM/DL (14.0-18.0); Immature Granulocytes % 1.9 %; Immature Granulocytes Absolute 0.25 #; Lymphocytes # 0.5 10*3/uL (1.4-4.0); Lymphocytes % 3.6 % (21.2-54.2); Mean Corpuscular HGB Conc 33.1 GM/DL (32-36); Mean Corpuscular Volume 91.7 FL (87-102); Monocytes % 6.5 % (1.7-12.7); Neutrophils % 86.7 % (38.7-73.9); Platelet Count 279 T/CUMM (130-400); Red Cell Distribution Width 14.6 % (9.3-17.3); White Blood Count 13.2 T/CUMM (4-12)
[2021-01-07 05:41] LABS: Albumin 2.1 G/DL (3.4-5.0); Bilirubin,Total 1.5 MG/DL (0.2-1.0); Calcium 7.4 MG/DL (8.5-10.1); Osmolality,Calculated 277.1 MOS/KG (273-304); Potassium 3.5 MMOL/L (3.5-5.1); Total Protein 5.1 G/DL (6.4-8.2)
[2021-01-07 05:50] LABS: Eosinophils 2 % (0-10); Hypochromasia 1+; Lymphocytes 1 % (20-55); Platelet Estimate Adequate; Segmented Neutrophils 89 % (50-85); Total Cells Counted 100
[2021-01-07 05:51] LABS: Microcytosis Slight
[2021-01-07] MEDS: POLYETHYLENE GLYCOL POWDER 17 GM PACK PO SCH (08:52)
[2021-01-07] MEDS: CHLORTHALIDONE 25 MG TABLET PO SCH (08:52)
[2021-01-07] MEDS: SULFAMETHOX/TRIMETHOPRIM 800-160 MG TABLET PO SCH ×2 (08:53→21:51)
[2021-01-07] MEDS: ISOSORBIDE MONONITRATE 30 MG TABLET PO SCH (08:53)
[2021-01-07] MEDS: METOPROLOL TARTRATE 50 MG TABLET PO SCH ×2 (08:53→20:58)
[2021-01-07] MEDS: PANTOPRAZOLE 40 MG TABLET PO SCH (08:53)
[2021-01-07] MEDS: DILTIAZEM CD 120 MG CAPSULE PO SCH ×2 (08:53→20:54)
[2021-01-07] MEDS: DOCUSATE SODIUM 100 MG CAPSULE PO SCH (08:53)
[2021-01-07] MEDS: TAMSULOSIN 0.4 MG CAPSULE PO SCH ×2 (08:54→20:56)
[2021-01-07] MEDS: FERROUS SULFATE 325 MG TABLET PO SCH (08:54)
[2021-01-07] MEDS: AMIODARONE 200 MG TABLET PO SCH ×2 (08:54→20:58)
[2021-01-07] MEDS: FUROSEMIDE 20 MG TABLET PO SCH (08:54)
[2021-01-07] MEDS: PHENAZOPYRIDINE 95 MG TABLET PO SCH ×2 (08:54→16:58)
[2021-01-07] MEDS: ASCORBIC ACID 500 MG TABLET PO SCH ×2 (08:54→20:57)
[2021-01-07] MEDS: APIXABAN 5 MG TABLET PO SCH ×2 (08:54→20:59)
[2021-01-07] MEDS: ASPIRIN EC 81 MG TABLET PO SCH (08:55)
[2021-01-07] MEDS: CHLORHEXIDINE 0.12% ORAL RINSE 60 ML BOTTLE SWISH/SPIT SCH ×2 (09:17→21:51)
[2021-01-07 17:04] LABS: Bacteria,Urine Occasional /HPF (Few); Bilirubin,Urine Negative (Negative); Blood, Urine Moderate mg/dL (Negative); Glucose,Urine (UA) Negative (Negative); Hyaline Casts,Urine 6 /LPF (0-3); Ketones,Urine Negative (Negative); Mucus,Urine Occasional /LPF (Occasional); Nitrite,Urine Positive (Negative); Protein,Urine Negative; RBC,Urine 255 /HPF (0-4); Squamous Epithelial Cell,Urine Occasional /HPF (0-10); Urine Appearance CLEAR (Clear); Urine Color Amber (Yellow); Urine Specific Gravity 1.013 (1.001-1.035); WBC,Urine 39 /HPF (0-6)
[2021-01-07] MEDS: CLORAZEPATE 3.75 MG TABLET PO PRN (17:06)
[2021-01-07] MEDS: ROSUVASTATIN 20 MG TABLET PO SCH (20:55)
[2021-01-08] MEDS: ALBUTEROL/IPRATROPIUM 3 ML NEB RESP TX SCH ×6 (03:25→23:22)
[2021-01-08 04:33] LABS: Basophils % 0.1 % (0.0-0.8); Eosinophils # 0.2 10*3/uL (0.0-0.87); Eosinophils % 1.3 % (0.00-10.9); Hematocrit 25.1 VOL% (42.0-52.0); Hemoglobin 8.2 GM/DL (14.0-18.0); Immature Granulocytes % 1.7 %; Immature Granulocytes Absolute 0.24 #; Lymphocytes # 0.6 10*3/uL (1.4-4.0); Lymphocytes % 4.3 % (21.2-54.2); Mean Corpuscular HGB Conc 32.7 GM/DL (32-36); Mean Corpuscular Volume 90.9 FL (87-102); Mean Platelet Volume 10.4 FL (9.6-12.0); Monocytes % 7.3 % (1.7-12.7); Neutrophils % 85.3 % (38.7-73.9); Platelet Count 285 T/CUMM (130-400); Red Blood Count 2.76 MC/CUMM (3.8-5.5); Red Cell Distribution Width 14.4 % (9.3-17.3); White Blood Count 14.2 T/CUMM (4-12)
[2021-01-08 04:48] LABS: Calcium 7.6 MG/DL (8.5-10.1); Osmolality,Calculated 262.2 MOS/KG (273-304); Potassium 3.6 MMOL/L (3.5-5.1)
[2021-01-08 04:53] LABS: Hypochromasia 1+; Lymphocytes 3 % (20-55); Microcytosis 1+; Ovalocytes Slight; Platelet Estimate Normal; Segmented Neutrophils 90 % (50-85); Total Cells Counted 100
[2021-01-08] MEDS ORDERED: SODIUM CHLORIDE 0.9% 1,000 ML IV SCH (06:00)
[2021-01-08] MEDS: ASPIRIN EC 81 MG TABLET PO SCH (08:58)
[2021-01-08] MEDS: TAMSULOSIN 0.4 MG CAPSULE PO SCH ×2 (08:58→22:11)
[2021-01-08] MEDS: POLYETHYLENE GLYCOL POWDER 17 GM PACK PO SCH (08:58)
[2021-01-08] MEDS: AMIODARONE 200 MG TABLET PO SCH ×2 (08:59→22:11)
[2021-01-08] MEDS: SULFAMETHOX/TRIMETHOPRIM 800-160 MG TABLET PO SCH ×2 (08:59→22:11)
[2021-01-08] MEDS: PHENAZOPYRIDINE 95 MG TABLET PO SCH ×2 (08:59→17:29)
[2021-01-08] MEDS: APIXABAN 5 MG TABLET PO SCH ×2 (08:59→22:11)
[2021-01-08] MEDS: FUROSEMIDE 20 MG TABLET PO SCH (08:59)
[2021-01-08] MEDS: PANTOPRAZOLE 40 MG TABLET PO SCH (08:59)
[2021-01-08] MEDS: ISOSORBIDE MONONITRATE 30 MG TABLET PO SCH (08:59)
[2021-01-08] MEDS: DOCUSATE SODIUM 100 MG CAPSULE PO SCH (08:59)
[2021-01-08] MEDS: CHLORTHALIDONE 25 MG TABLET PO SCH (08:59)
[2021-01-08] MEDS: FERROUS SULFATE 325 MG TABLET PO SCH (08:59)
[2021-01-08] MEDS: ASCORBIC ACID 500 MG TABLET PO SCH ×2 (08:59→22:11)
[2021-01-08] MEDS: CHLORHEXIDINE 0.12% ORAL RINSE 60 ML BOTTLE SWISH/SPIT SCH ×2 (09:00→22:11)
[2021-01-08] MEDS: METOPROLOL TARTRATE 50 MG TABLET PO SCH ×2 (12:01→22:11)
[2021-01-08] MEDS: ROSUVASTATIN 20 MG TABLET PO SCH (22:11)
[2021-01-08] MEDS: CLORAZEPATE 3.75 MG TABLET PO PRN (22:12)
[2021-01-09] MEDS: ALBUTEROL/IPRATROPIUM 3 ML NEB RESP TX SCH ×6 (03:00→23:40)
[2021-01-09] MEDS ORDERED: FUROSEMIDE 40 MG/4 ML VIAL ONE (03:03)
[2021-01-09] MEDS ORDERED: methylPREDNISolone SOD SUC 125 MG/2 ML VIAL IV STA (03:08)
[2021-01-09] MEDS ORDERED: FUROSEMIDE 40 MG/4 ML VIAL IV STA (03:08)
[2021-01-09] MEDS ORDERED: methylPREDNISolone SOD SUC 125 MG/2 ML VIAL IV ONE (03:08)
[2021-01-09] MEDS ORDERED: methylPREDNISolone SOD SUC 125 MG/2 ML VIAL ONE (03:09)
[2021-01-09 03:29] LABS: ABG Base Excess 2.7 MMOL/L (-2.5-2.5); ABG HCO3 26.8 MMOL/L (20-26); ABG Oxygen Saturation 96.5 % (95-100); ABG PCO2 32.5 MM HG (35-48); ABG PH 7.502 (7.35-7.45); ABG PO2 79.9 MM HG (80-95); ABG TCO2 23.3 MMOL/L (23-27)
[2021-01-09 03:31] LABS: Basophils % 0.1 % (0.0-0.8); Eosinophils % 0.3 % (0.00-10.9); Hematocrit 27.6 VOL% (42.0-52.0); Hemoglobin 9.2 GM/DL (14.0-18.0); Immature Granulocytes % 1.3 %; Immature Granulocytes Absolute 0.18 #; Lymphocytes # 0.6 10*3/uL (1.4-4.0); Lymphocytes % 4.4 % (21.2-54.2); Mean Corpuscular HGB Conc 33.3 GM/DL (32-36); Mean Corpuscular Volume 87.6 FL (87-102); Mean Platelet Volume 9.5 FL (9.6-12.0); Monocytes % 5.4 % (1.7-12.7); Neutrophils % 88.5 % (38.7-73.9); Platelet Count 315 T/CUMM (130-400); Red Blood Count 3.15 MC/CUMM (3.8-5.5); Red Cell Distribution Width 14.1 % (9.3-17.3); White Blood Count 14.2 T/CUMM (4-12)
[2021-01-09 03:42] LABS: INR 1.2; PT Patient Result 13.2 SECS (9.8-11.9)
[2021-01-09 03:46] LABS: Albumin 2.2 G/DL (3.4-5.0); Bilirubin,Total 0.7 MG/DL (0.2-1.0); Osmolality,Calculated 263.4 MOS/KG (273-304); Potassium 3.8 MMOL/L (3.5-5.1); Total Protein 5.8 G/DL (6.4-8.2)
[2021-01-09 03:52] LABS: Eosinophils 1 % (0-10); Lymphocytes 2 % (20-55); Platelet Estimate Normal; Segmented Neutrophils 95 % (50-85); Total Cells Counted 100
[2021-01-09 03:53] LABS: Hypochromasia Slight; Microcytosis Slight
[2021-01-09 03:56] LABS: Bacteria,Urine Occasional /HPF (Few); Bilirubin,Urine Negative (Negative); Blood, Urine Moderate mg/dL (Negative); Glucose,Urine (UA) Negative (Negative); Ketones,Urine Negative (Negative); Mucus,Urine Occasional /LPF (Occasional); Nitrite,Urine Positive (Negative); Protein,Urine 30 MG/DL; RBC,Urine 261 /HPF (0-4); Squamous Epithelial Cell,Urine Occasional /HPF (0-10); Urine Appearance CLEAR (Clear); Urine Color Amber (Yellow); Urine Specific Gravity 1.014 (1.001-1.035); WBC,Urine 20 /HPF (0-6)
[2021-01-09 04:52] LABS: Basophils % 0.1 % (0.0-0.8); Eosinophils % 0.2 % (0.00-10.9); Immature Granulocytes Absolute 0.12 #; Lymphocytes # 0.3 10*3/uL (1.4-4.0); Lymphocytes % 2.7 % (21.2-54.2); Mean Corpuscular HGB Conc 33.3 GM/DL (32-36); Mean Corpuscular Volume 87.9 FL (87-102); Mean Platelet Volume 9.8 FL (9.6-12.0); Platelet Count 265 T/CUMM (130-400); Red Blood Count 3.07 MC/CUMM (3.8-5.5); Red Cell Distribution Width 14.1 % (9.3-17.3)
[2021-01-09] MEDS: CEFEPIME 1,000 MG in SODIUM CHLORIDE 0.9% 100 ML IV SCH ×3 (05:03→20:40)
[2021-01-09 05:19] LABS: Calcium 8.1 MG/DL (8.5-10.1); Osmolality,Calculated 263.4 MOS/KG (273-304); Potassium 3.6 MMOL/L (3.5-5.1)
[2021-01-09 05:20] LABS: Hypochromasia 1+; Lymphocytes 4 % (20-55); Segmented Neutrophils 94 % (50-85); Total Cells Counted 100
[2021-01-09 05:21] LABS: Microcytosis 1+; Platelet Estimate Normal
[2021-01-09] MEDS: FINASTERIDE 5 MG TABLET PO SCH (08:55)
[2021-01-09] MEDS: ASPIRIN EC 81 MG TABLET PO SCH (08:56)
[2021-01-09] MEDS: APIXABAN 5 MG TABLET PO SCH ×2 (08:56→20:39)
[2021-01-09] MEDS: AMIODARONE 200 MG TABLET PO SCH ×2 (08:56→20:39)
[2021-01-09] MEDS: DOCUSATE SODIUM 100 MG CAPSULE PO SCH (08:56)
[2021-01-09] MEDS: FERROUS SULFATE 325 MG TABLET PO SCH (08:56)
[2021-01-09] MEDS: PANTOPRAZOLE 40 MG TABLET PO SCH (09:01)
[2021-01-09] MEDS: PHENAZOPYRIDINE 95 MG TABLET PO SCH ×2 (09:01→16:12)
[2021-01-09] MEDS: TAMSULOSIN 0.4 MG CAPSULE PO SCH ×2 (09:02→20:40)
[2021-01-09] MEDS: ASCORBIC ACID 500 MG TABLET PO SCH ×2 (09:02→20:40)
[2021-01-09] MEDS: ISOSORBIDE MONONITRATE 30 MG TABLET PO SCH (09:02)
[2021-01-09] MEDS: METOPROLOL TARTRATE 50 MG TABLET PO SCH ×2 (09:03→20:39)
[2021-01-09] MEDS: SULFAMETHOX/TRIMETHOPRIM 800-160 MG TABLET PO SCH ×2 (09:03→20:39)
[2021-01-09] MEDS: POLYETHYLENE GLYCOL POWDER 17 GM PACK PO SCH (09:04)
[2021-01-09] MEDS: methylPREDNISolone SOD SUC 125 MG/2 ML VIAL IV SCH ×3 (09:05→20:40)
[2021-01-09] MEDS: CHLORHEXIDINE 0.12% ORAL RINSE 60 ML BOTTLE SWISH/SPIT SCH ×2 (10:08→20:40)
[2021-01-09] MEDS: FUROSEMIDE 40 MG/4 ML VIAL IV SCH ×2 (11:16→15:08)
[2021-01-09] MEDS: ROSUVASTATIN 20 MG TABLET PO SCH (20:39)
[2021-01-10] MEDS: methylPREDNISolone SOD SUC 125 MG/2 ML VIAL IV SCH ×4 (02:13→20:08)
[2021-01-10] MEDS: ALBUTEROL/IPRATROPIUM 3 ML NEB RESP TX SCH ×6 (03:20→22:45)
[2021-01-10 04:22] LABS: Basophils % 0.1 % (0.0-0.8); Hemoglobin 9.4 GM/DL (14.0-18.0); Lymphocytes # 0.2 10*3/uL (1.4-4.0); Lymphocytes % 2.1 % (21.2-54.2); Mean Corpuscular HGB Conc 33.6 GM/DL (32-36); Mean Corpuscular Volume 85.4 FL (87-102); Mean Platelet Volume 9.5 FL (9.6-12.0); Monocytes % 1.6 % (1.7-12.7); Neutrophils % 95.2 % (38.7-73.9); Platelet Count 294 T/CUMM (130-400); Red Blood Count 3.28 MC/CUMM (3.8-5.5); Red Cell Distribution Width 13.8 % (9.3-17.3); White Blood Count 10.1 T/CUMM (4-12)
[2021-01-10 04:40] LABS: Albumin 2.1 G/DL (3.4-5.0); Bilirubin,Total 0.5 MG/DL (0.2-1.0); Calcium 8.2 MG/DL (8.5-10.1); Osmolality,Calculated 273.1 MOS/KG (273-304); Potassium 3.1 MMOL/L (3.5-5.1); Total Protein 5.6 G/DL (6.4-8.2)
[2021-01-10] MEDS: CEFEPIME 1,000 MG in SODIUM CHLORIDE 0.9% 100 ML IV SCH ×3 (04:40→20:12)
[2021-01-10 04:53] LABS: Lymphocytes 2 % (20-55); Segmented Neutrophils 97 % (50-85); Total Cells Counted 100
[2021-01-10 04:54] LABS: Hypochromasia 1+; Microcytosis 1+; Platelet Estimate Adequate
[2021-01-10] MEDS: POTASSIUM CHLORIDE 20 MEQ TABLET PO PRN ×3 (05:05→06:54)
[2021-01-10] MEDS ORDERED: POTASSIUM CHLORIDE 20 MEQ TABLET PO ONE ×2 (06:45→09:00)
[2021-01-10] MEDS: METOPROLOL TARTRATE 50 MG TABLET PO SCH ×2 (08:03→20:13)
[2021-01-10] MEDS: ISOSORBIDE MONONITRATE 30 MG TABLET PO SCH (08:03)
[2021-01-10] MEDS: TAMSULOSIN 0.4 MG CAPSULE PO SCH ×2 (08:03→20:13)
[2021-01-10] MEDS: PANTOPRAZOLE 40 MG TABLET PO SCH (08:03)
[2021-01-10] MEDS: ASPIRIN EC 81 MG TABLET PO SCH (08:04)
[2021-01-10] MEDS: SULFAMETHOX/TRIMETHOPRIM 800-160 MG TABLET PO SCH ×2 (08:04→20:12)
[2021-01-10] MEDS: AMIODARONE 200 MG TABLET PO SCH ×2 (08:04→20:14)
[2021-01-10] MEDS: FUROSEMIDE 40 MG/4 ML VIAL IV SCH ×2 (08:04→16:16)
[2021-01-10] MEDS: APIXABAN 5 MG TABLET PO SCH ×2 (08:04→20:14)
[2021-01-10] MEDS: FERROUS SULFATE 325 MG TABLET PO SCH (08:04)
[2021-01-10] MEDS: CLORAZEPATE 3.75 MG TABLET PO PRN (08:04)
[2021-01-10] MEDS: FINASTERIDE 5 MG TABLET PO SCH (08:05)
[2021-01-10] MEDS: DOCUSATE SODIUM 100 MG CAPSULE PO SCH (08:05)
[2021-01-10] MEDS: ASCORBIC ACID 500 MG TABLET PO SCH ×2 (08:05→20:13)
[2021-01-10] MEDS: PHENAZOPYRIDINE 95 MG TABLET PO SCH ×2 (08:08→16:17)
[2021-01-10] MEDS: CHLORHEXIDINE 0.12% ORAL RINSE 60 ML BOTTLE SWISH/SPIT SCH ×2 (08:19→20:21)
[2021-01-10] MEDS: POLYETHYLENE GLYCOL POWDER 17 GM PACK PO SCH (08:19)
[2021-01-10] MEDS: ZALEPLON 5 MG CAPSULE PO PRN (20:13)
[2021-01-10] MEDS: ROSUVASTATIN 20 MG TABLET PO SCH (20:15)
[2021-01-11] MEDS: ALBUTEROL/IPRATROPIUM 3 ML NEB RESP TX SCH ×5 (02:35→19:21)
[2021-01-11] MEDS: methylPREDNISolone SOD SUC 125 MG/2 ML VIAL IV SCH ×4 (03:02→21:19)
[2021-01-11 04:13] LABS: Hematocrit 25.8 VOL% (42.0-52.0); Hemoglobin 8.9 GM/DL (14.0-18.0); Immature Granulocytes % 0.7 %; Immature Granulocytes Absolute 0.08 #; Lymphocytes # 0.3 10*3/uL (1.4-4.0); Lymphocytes % 2.4 % (21.2-54.2); Mean Corpuscular HGB Conc 34.5 GM/DL (32-36); Mean Corpuscular Volume 84.9 FL (87-102); Mean Platelet Volume 9.5 FL (9.6-12.0); Monocytes % 1.4 % (1.7-12.7); Neutrophils % 95.5 % (38.7-73.9); Platelet Count 285 T/CUMM (130-400); Red Blood Count 3.04 MC/CUMM (3.8-5.5); Red Cell Distribution Width 14.1 % (9.3-17.3); White Blood Count 11.9 T/CUMM (4-12)
[2021-01-11 04:35] LABS: Bilirubin,Total 1.3 MG/DL (0.2-1.0); Calcium 8.1 MG/DL (8.5-10.1); Hypochromasia 1+; Lymphocytes 4 % (20-55); Microcytosis 1+; Osmolality,Calculated 278.7 MOS/KG (273-304); Ovalocytes Slight; Platelet Estimate Adequate; Potassium 3.8 MMOL/L (3.5-5.1); Segmented Neutrophils 94 % (50-85); Total Cells Counted 100; Total Protein 5.1 G/DL (6.4-8.2)
[2021-01-11] MEDS: CEFEPIME 1,000 MG in SODIUM CHLORIDE 0.9% 100 ML IV SCH (07:00)
[2021-01-11] MEDS: SULFAMETHOX/TRIMETHOPRIM 800-160 MG TABLET PO SCH ×2 (09:12→21:17)
[2021-01-11] MEDS: ASCORBIC ACID 500 MG TABLET PO SCH ×2 (09:12→21:17)
[2021-01-11] MEDS: FINASTERIDE 5 MG TABLET PO SCH (09:12)
[2021-01-11] MEDS: FUROSEMIDE 40 MG/4 ML VIAL IV SCH ×2 (09:12→16:54)
[2021-01-11] MEDS: METOPROLOL TARTRATE 50 MG TABLET PO SCH (09:12)
[2021-01-11] MEDS: CLORAZEPATE 3.75 MG TABLET PO PRN (09:13)
[2021-01-11] MEDS: ISOSORBIDE MONONITRATE 30 MG TABLET PO SCH (09:13)
[2021-01-11] MEDS: APIXABAN 5 MG TABLET PO SCH ×2 (09:13→21:17)
[2021-01-11] MEDS: ASPIRIN EC 81 MG TABLET PO SCH (09:13)
[2021-01-11] MEDS: PHENAZOPYRIDINE 95 MG TABLET PO SCH ×2 (09:13→16:54)
[2021-01-11] MEDS: AMIODARONE 200 MG TABLET PO SCH ×2 (09:13→21:17)
[2021-01-11] MEDS: SPIRONOLACTONE 25 MG TABLET PO SCH (09:13)
[2021-01-11] MEDS: DOCUSATE SODIUM 100 MG CAPSULE PO SCH (09:13)
[2021-01-11] MEDS: PANTOPRAZOLE 40 MG TABLET PO SCH (09:13)
[2021-01-11] MEDS: TAMSULOSIN 0.4 MG CAPSULE PO SCH ×2 (09:13→21:17)
[2021-01-11] MEDS: CHLORHEXIDINE 0.12% ORAL RINSE 60 ML BOTTLE SWISH/SPIT SCH (09:15)
[2021-01-11] MEDS: FERROUS SULFATE 325 MG TABLET PO SCH (09:15)
[2021-01-11] MEDS: POLYETHYLENE GLYCOL POWDER 17 GM PACK PO SCH (09:16)
[2021-01-11] MEDS ORDERED: ALUMINUM/MAGNES/SIMETH MAX STR 30 ML UDCUP PO PRN (11:22)
[2021-01-11] MEDS ORDERED: DEXTROSE 50% 25 GM/50 ML VIAL IV PRN (11:22)
[2021-01-11] MEDS ORDERED: GLUCAGON 1 MG VIAL IM PRN (11:22)
[2021-01-11] MEDS ORDERED: MAGNESIUM HYDROXIDE SUSP 30 ML UDCUP PO PRN (11:22)
[2021-01-11] MEDS ORDERED: ACETAMINOPHEN 325 MG TABLET PO PRN (11:22)
[2021-01-11] MEDS ORDERED: MAGNESIUM SULF RIDER 4 GM in PREMIX 1 EACH IV PRN (11:22)
[2021-01-11] MEDS ORDERED: ONDANSETRON 4 MG/2 ML VIAL IV PRN (11:22)
[2021-01-11] MEDS ORDERED: MAGNESIUM SULF RIDER 2 GM in PREMIX 1 EACH IV PRN (11:22)
[2021-01-11] MEDS ORDERED: POTASSIUM CHLORIDE 20 MEQ TABLET PO PRN (11:22)
[2021-01-11] MEDS: ROSUVASTATIN 20 MG TABLET PO SCH (21:17)
[2021-01-12] MEDS: ALBUTEROL/IPRATROPIUM 3 ML NEB RESP TX SCH ×6 (00:29→20:03)
[2021-01-12] MEDS: METOPROLOL TARTRATE 50 MG TABLET PO SCH ×3 (02:26→21:04)
[2021-01-12] MEDS: methylPREDNISolone SOD SUC 125 MG/2 ML VIAL IV SCH ×4 (03:37→21:05)
[2021-01-12 05:46] LABS: Hematocrit 25.7 VOL% (42.0-52.0); Hemoglobin 8.9 GM/DL (14.0-18.0); Immature Granulocytes % 1.1 %; Lymphocytes # 0.2 10*3/uL (1.4-4.0); Lymphocytes % 2.3 % (21.2-54.2); Mean Corpuscular HGB Conc 34.6 GM/DL (32-36); Mean Platelet Volume 9.9 FL (9.6-12.0); Monocytes % 1.6 % (1.7-12.7); Platelet Count 298 T/CUMM (130-400); Red Blood Count 2.99 MC/CUMM (3.8-5.5); Red Cell Distribution Width 14.1 % (9.3-17.3); White Blood Count 9.2 T/CUMM (4-12)
[2021-01-12 06:07] LABS: Calcium 8.1 MG/DL (8.5-10.1); Osmolality,Calculated 276.1 MOS/KG (273-304); Potassium 3.3 MMOL/L (3.5-5.1)
[2021-01-12 06:14] LABS: Albumin 2.2 G/DL (3.4-5.0); Bilirubin,Total 0.6 MG/DL (0.2-1.0); Calcium 8.2 MG/DL (8.5-10.1); Osmolality,Calculated 278.9 MOS/KG (273-304); Potassium 3.3 MMOL/L (3.5-5.1); Total Protein 5.3 G/DL (6.4-8.2)
[2021-01-12] MEDS ORDERED: POTASSIUM CHLORIDE 20 MEQ TABLET PO ONE (06:16)
[2021-01-12 06:19] LABS: Hypochromasia 1+; Lymphocytes 2 % (20-55); Microcytosis 1+; Platelet Estimate Adequate; Segmented Neutrophils 98 % (50-85); Total Cells Counted 100
[2021-01-12 06:27] LABS: Alanine Aminotransferase 69 U/L (16-61); Albumin 2.2 G/DL (3.4-5.0); Alkaline Phosphatase 303 U/L (45-117); Aspartate Amino Transferase 30 U/L (0-37); Bilirubin,Indirect 1.2 MG/DL (0.0-1.0); Total Protein 4.7 G/DL (6.4-8.2)
[2021-01-12 06:28] LABS: Troponin I 0.454 NG/ML (0.00-0.045)
[2021-01-12] MEDS: PHENAZOPYRIDINE 95 MG TABLET PO SCH ×2 (09:12→17:36)
[2021-01-12] MEDS: FINASTERIDE 5 MG TABLET PO SCH (09:12)
[2021-01-12] MEDS: TAMSULOSIN 0.4 MG CAPSULE PO SCH ×2 (09:12→21:04)
[2021-01-12] MEDS: POTASSIUM CHLORIDE 20 MEQ TABLET PO SCH ×2 (09:12→21:04)
[2021-01-12] MEDS: POLYETHYLENE GLYCOL POWDER 17 GM PACK PO SCH (09:12)
[2021-01-12] MEDS: ASCORBIC ACID 500 MG TABLET PO SCH ×2 (09:12→21:04)
[2021-01-12] MEDS: DOCUSATE SODIUM 100 MG CAPSULE PO SCH (09:13)
[2021-01-12] MEDS: ASPIRIN EC 81 MG TABLET PO SCH (09:13)
[2021-01-12] MEDS: ISOSORBIDE MONONITRATE 30 MG TABLET PO SCH (09:13)
[2021-01-12] MEDS: FERROUS SULFATE 325 MG TABLET PO SCH (09:13)
[2021-01-12] MEDS: AMIODARONE 200 MG TABLET PO SCH ×2 (09:13→21:04)
[2021-01-12] MEDS: APIXABAN 5 MG TABLET PO SCH ×2 (09:13→21:04)
[2021-01-12] MEDS: SPIRONOLACTONE 25 MG TABLET PO SCH (09:13)
[2021-01-12] MEDS: FUROSEMIDE 40 MG/4 ML VIAL IV SCH ×2 (09:14→17:32)
[2021-01-12] MEDS: PANTOPRAZOLE 40 MG TABLET PO SCH (09:14)
[2021-01-12] MEDS: DIGOXIN 0.5 MG/2 ML AMP IV SCH ×3 (09:23→21:05)
[2021-01-12] MEDS: ROSUVASTATIN 20 MG TABLET PO SCH (21:03)
[2021-01-13] MEDS: ALBUTEROL/IPRATROPIUM 3 ML NEB RESP TX SCH ×7 (00:08→23:40)
[2021-01-13] MEDS: methylPREDNISolone SOD SUC 125 MG/2 ML VIAL IV SCH ×2 (03:03→08:25)
[2021-01-13] MEDS: DIGOXIN 0.5 MG/2 ML AMP IV SCH (03:03)
[2021-01-13 04:21] LABS: Hematocrit 25.8 VOL% (42.0-52.0); Hemoglobin 8.4 GM/DL (14.0-18.0); Immature Granulocytes % 0.9 %; Immature Granulocytes Absolute 0.08 #; Lymphocytes # 0.2 10*3/uL (1.4-4.0); Lymphocytes % 2.6 % (21.2-54.2); Mean Corpuscular HGB Conc 32.6 GM/DL (32-36); Mean Corpuscular Volume 88.1 FL (87-102); Mean Platelet Volume 9.6 FL (9.6-12.0); Monocytes % 1.7 % (1.7-12.7); Neutrophils % 94.8 % (38.7-73.9); Platelet Count 298 T/CUMM (130-400); Red Blood Count 2.93 MC/CUMM (3.8-5.5); White Blood Count 8.9 T/CUMM (4-12)
[2021-01-13 04:48] LABS: Alanine Aminotransferase 95 U/L (16-61); Albumin 2.2 G/DL (3.4-5.0); Alkaline Phosphatase 239 U/L (45-117); Aspartate Amino Transferase 44 U/L (0-37); Bilirubin,Indirect 0.3 MG/DL (0.0-1.0); Blood Urea Nitrogen 61 MG/DL (7-18); Carbon Dioxide 31 MMOL/L (21-32); Estimated Glom Filtration Rate 39 ML/MIN; Glucose 158 MG/DL (74-106); Osmolality,Calculated 277.9 MOS/KG (273-304); Potassium 3.9 MMOL/L (3.5-5.1); Sodium 129 MMOL/L (136-145); Total Protein 4.8 G/DL (6.4-8.2)
[2021-01-13 04:56] LABS: Lymphocytes 3 % (20-55); Platelet Estimate Normal; Segmented Neutrophils 97 % (50-85); Total Cells Counted 100
[2021-01-13 04:57] LABS: Hypochromasia 1+
[2021-01-13] MEDS: TAMSULOSIN 0.4 MG CAPSULE PO SCH ×2 (08:21→20:16)
[2021-01-13] MEDS: APIXABAN 5 MG TABLET PO SCH ×2 (08:21→20:17)
[2021-01-13] MEDS: ASPIRIN EC 81 MG TABLET PO SCH (08:22)
[2021-01-13] MEDS: METOPROLOL TARTRATE 50 MG TABLET PO SCH ×2 (08:22→20:17)
[2021-01-13] MEDS: SPIRONOLACTONE 25 MG TABLET PO SCH (08:22)
[2021-01-13] MEDS: ASCORBIC ACID 500 MG TABLET PO SCH ×2 (08:22→20:16)
[2021-01-13] MEDS: FINASTERIDE 5 MG TABLET PO SCH (08:23)
[2021-01-13] MEDS: AMIODARONE 200 MG TABLET PO SCH ×2 (08:23→20:17)
[2021-01-13] MEDS: DOCUSATE SODIUM 100 MG CAPSULE PO SCH (08:23)
[2021-01-13] MEDS: PHENAZOPYRIDINE 95 MG TABLET PO SCH ×2 (08:23→16:27)
[2021-01-13] MEDS: PANTOPRAZOLE 40 MG TABLET PO SCH (08:24)
[2021-01-13] MEDS: ISOSORBIDE MONONITRATE 30 MG TABLET PO SCH (08:24)
[2021-01-13] MEDS: POTASSIUM CHLORIDE 20 MEQ TABLET PO SCH ×2 (08:24→20:16)
[2021-01-13] MEDS: FERROUS SULFATE 325 MG TABLET PO SCH (08:24)
[2021-01-13] MEDS: FUROSEMIDE 40 MG/4 ML VIAL IV SCH ×2 (08:25→16:27)
[2021-01-13] MEDS: POLYETHYLENE GLYCOL POWDER 17 GM PACK PO SCH (08:27)
[2021-01-13] MEDS ORDERED: SODIUM CHLORIDE 0.9% 1,000 ML IV PRN (09:05)
[2021-01-13] MEDS ORDERED: FUROSEMIDE 40 MG/4 ML VIAL IV ONE (09:06)
[2021-01-13] MEDS: ROSUVASTATIN 20 MG TABLET PO SCH (20:15)
[2021-01-13] MEDS: predniSONE 10 MG TABLET PO SCH (20:16)
[2021-01-14] MEDS: ALBUTEROL/IPRATROPIUM 3 ML NEB RESP TX SCH ×6 (02:37→23:19)
[2021-01-14] MEDS: DOCUSATE SODIUM 100 MG CAPSULE PO SCH (08:31)
[2021-01-14] MEDS: ASPIRIN EC 81 MG TABLET PO SCH (08:31)
[2021-01-14] MEDS: FINASTERIDE 5 MG TABLET PO SCH (08:31)
[2021-01-14] MEDS: PHENAZOPYRIDINE 95 MG TABLET PO SCH ×2 (08:31→16:30)
[2021-01-14] MEDS: METOPROLOL TARTRATE 50 MG TABLET PO SCH ×2 (08:31→21:30)
[2021-01-14] MEDS: SPIRONOLACTONE 25 MG TABLET PO SCH (08:31)
[2021-01-14] MEDS: TAMSULOSIN 0.4 MG CAPSULE PO SCH ×2 (08:32→21:29)
[2021-01-14] MEDS: ASCORBIC ACID 500 MG TABLET PO SCH ×2 (08:32→21:32)
[2021-01-14] MEDS: POTASSIUM CHLORIDE 20 MEQ TABLET PO SCH ×2 (08:32→21:31)
[2021-01-14] MEDS: PANTOPRAZOLE 40 MG TABLET PO SCH (08:32)
[2021-01-14] MEDS: AMIODARONE 200 MG TABLET PO SCH ×2 (08:32→21:31)
[2021-01-14] MEDS: ISOSORBIDE MONONITRATE 30 MG TABLET PO SCH (08:32)
[2021-01-14] MEDS: predniSONE 10 MG TABLET PO SCH (08:32)
[2021-01-14] MEDS: FUROSEMIDE 40 MG/4 ML VIAL IV SCH ×2 (08:32→16:33)
[2021-01-14] MEDS: APIXABAN 5 MG TABLET PO SCH ×2 (08:32→21:32)
[2021-01-14] MEDS: FERROUS SULFATE 325 MG TABLET PO SCH (08:32)
[2021-01-14] MEDS: POLYETHYLENE GLYCOL POWDER 17 GM PACK PO SCH (08:38)
[2021-01-14] MEDS: predniSONE 20 MG TABLET PO SCH (10:04)
[2021-01-14] MEDS: BUDESONIDE/FORMOTEROL 160-4.5 INHALER 6 GM INH SCH ×2 (10:05→21:32)
[2021-01-14] MEDS: ROSUVASTATIN 20 MG TABLET PO SCH (21:29)
[2021-01-14] MEDS: ZALEPLON 5 MG CAPSULE PO PRN (21:31)
[2021-01-15] MEDS: ALBUTEROL/IPRATROPIUM 3 ML NEB RESP TX SCH ×5 (02:02→20:29)
[2021-01-15 05:15] LABS: Eosinophils % 0.1 % (0.00-10.9); Hematocrit 33.2 VOL% (42.0-52.0); Hemoglobin 10.8 GM/DL (14.0-18.0); Immature Granulocytes % 1.1 %; Immature Granulocytes Absolute 0.14 #; Lymphocytes # 0.5 10*3/uL (1.4-4.0); Lymphocytes % 3.8 % (21.2-54.2); Mean Corpuscular HGB Conc 32.5 GM/DL (32-36); Mean Corpuscular Volume 88.3 FL (87-102); Mean Platelet Volume 9.5 FL (9.6-12.0); Monocytes % 5.6 % (1.7-12.7); Neutrophils % 89.4 % (38.7-73.9); Platelet Count 290 T/CUMM (130-400); Red Blood Count 3.76 MC/CUMM (3.8-5.5); Red Cell Distribution Width 14.1 % (9.3-17.3); White Blood Count 13.2 T/CUMM (4-12)
[2021-01-15 05:39] LABS: Alanine Aminotransferase 66 U/L (16-61); Albumin 2.3 G/DL (3.4-5.0); Alkaline Phosphatase 179 U/L (45-117); Aspartate Amino Transferase 14 U/L (0-37); Bilirubin,Indirect 0.3 MG/DL (0.0-1.0); Blood Urea Nitrogen 65 MG/DL (7-18); Calcium 8.3 MG/DL (8.5-10.1); Carbon Dioxide 32 MMOL/L (21-32); Glucose 143 MG/DL (74-106); Osmolality,Calculated 288.2 MOS/KG (273-304); Potassium 4.2 MMOL/L (3.5-5.1); Sodium 134 MMOL/L (136-145); Total Protein 4.9 G/DL (6.4-8.2)
[2021-01-15 05:55] LABS: Hypochromasia Slight; Lymphocytes 2 % (20-55); Platelet Estimate Normal; Segmented Neutrophils 97 % (50-85); Total Cells Counted 100
[2021-01-15 06:11] LABS: Estimated Glom Filtration Rate 56 ML/MIN; Troponin I 0.331 NG/ML (0.00-0.045)
[2021-01-15] MEDS: METOPROLOL TARTRATE 50 MG TABLET PO SCH ×2 (08:41→22:04)
[2021-01-15] MEDS: POLYETHYLENE GLYCOL POWDER 17 GM PACK PO SCH ×2 (08:41→14:32)
[2021-01-15] MEDS: PHENAZOPYRIDINE 95 MG TABLET PO SCH ×2 (08:42→18:03)
[2021-01-15] MEDS: AMIODARONE 200 MG TABLET PO SCH ×2 (08:42→22:02)
[2021-01-15] MEDS: FERROUS SULFATE 325 MG TABLET PO SCH (08:42)
[2021-01-15] MEDS: SPIRONOLACTONE 25 MG TABLET PO SCH (08:42)
[2021-01-15] MEDS: ASCORBIC ACID 500 MG TABLET PO SCH ×2 (08:43→22:05)
[2021-01-15] MEDS: TAMSULOSIN 0.4 MG CAPSULE PO SCH ×2 (08:43→22:04)
[2021-01-15] MEDS: ISOSORBIDE MONONITRATE 30 MG TABLET PO SCH (08:43)
[2021-01-15] MEDS: predniSONE 20 MG TABLET PO SCH (08:43)
[2021-01-15] MEDS: PANTOPRAZOLE 40 MG TABLET PO SCH (08:43)
[2021-01-15] MEDS: DOCUSATE SODIUM 100 MG CAPSULE PO SCH (08:43)
[2021-01-15] MEDS: APIXABAN 5 MG TABLET PO SCH ×2 (08:43→22:04)
[2021-01-15] MEDS: POTASSIUM CHLORIDE 20 MEQ TABLET PO SCH ×2 (08:43→22:05)
[2021-01-15] MEDS: ASPIRIN EC 81 MG TABLET PO SCH (08:43)
[2021-01-15] MEDS: FINASTERIDE 5 MG TABLET PO SCH (08:50)
[2021-01-15] MEDS: FUROSEMIDE 40 MG/4 ML VIAL IV SCH ×2 (08:51→18:05)
[2021-01-15] MEDS: BUDESONIDE/FORMOTEROL 160-4.5 INHALER 6 GM INH SCH ×2 (09:55→22:06)
[2021-01-15] MEDS: ZALEPLON 5 MG CAPSULE PO PRN (22:03)
[2021-01-15] MEDS: ROSUVASTATIN 20 MG TABLET PO SCH (22:03)
[2021-01-16] MEDS: ALBUTEROL/IPRATROPIUM 3 ML NEB RESP TX SCH ×6 (00:49→20:58)
[2021-01-16 05:20] LABS: Eosinophils % 0.3 % (0.00-10.9); Hematocrit 34.1 VOL% (42.0-52.0); Hemoglobin 10.9 GM/DL (14.0-18.0); Immature Granulocytes % 2.1 %; Immature Granulocytes Absolute 0.24 #; Lymphocytes # 0.6 10*3/uL (1.4-4.0); Lymphocytes % 5.2 % (21.2-54.2); Mean Corpuscular Volume 90.9 FL (87-102); Mean Platelet Volume 9.5 FL (9.6-12.0); Monocytes % 6.5 % (1.7-12.7); Neutrophils % 85.9 % (38.7-73.9); Platelet Count 301 T/CUMM (130-400); Red Blood Count 3.75 MC/CUMM (3.8-5.5); Red Cell Distribution Width 14.1 % (9.3-17.3); White Blood Count 11.7 T/CUMM (4-12)
[2021-01-16 05:49] LABS: Calcium 8.4 MG/DL (8.5-10.1); Osmolality,Calculated 282.2 MOS/KG (273-304); Potassium 4.7 MMOL/L (3.5-5.1)
[2021-01-16 05:55] LABS: Alanine Aminotransferase 62 U/L (16-61); Albumin 2.4 G/DL (3.4-5.0); Alkaline Phosphatase 146 U/L (45-117); Aspartate Amino Transferase 15 U/L (0-37); Blood Urea Nitrogen 56 MG/DL (7-18); Calcium 8.3 MG/DL (8.5-10.1); Carbon Dioxide 32 MMOL/L (21-32); Estimated Glom Filtration Rate 67 ML/MIN; Glucose 103 MG/DL (74-106); Osmolality,Calculated 277.7 MOS/KG (273-304); Potassium 4.6 MMOL/L (3.5-5.1); Sodium 131 MMOL/L (136-145)
[2021-01-16 05:56] LABS: Troponin I 0.275 NG/ML (0.00-0.045)
[2021-01-16] MEDS: POTASSIUM CHLORIDE 20 MEQ TABLET PO SCH ×2 (08:59→22:42)
[2021-01-16] MEDS: ASCORBIC ACID 500 MG TABLET PO SCH ×2 (08:59→22:44)
[2021-01-16] MEDS: predniSONE 20 MG TABLET PO SCH (08:59)
[2021-01-16] MEDS: ISOSORBIDE MONONITRATE 30 MG TABLET PO SCH (09:00)
[2021-01-16] MEDS: AMIODARONE 200 MG TABLET PO SCH ×2 (09:00→22:42)
[2021-01-16] MEDS: FERROUS SULFATE 325 MG TABLET PO SCH (09:00)
[2021-01-16] MEDS: SPIRONOLACTONE 25 MG TABLET PO SCH (09:00)
[2021-01-16] MEDS: DOCUSATE SODIUM 100 MG CAPSULE PO SCH (09:00)
[2021-01-16] MEDS: METOPROLOL TARTRATE 50 MG TABLET PO SCH ×2 (09:00→22:45)
[2021-01-16] MEDS: PANTOPRAZOLE 40 MG TABLET PO SCH (09:01)
[2021-01-16] MEDS: APIXABAN 5 MG TABLET PO SCH ×2 (09:01→22:45)
[2021-01-16] MEDS: TAMSULOSIN 0.4 MG CAPSULE PO SCH ×2 (09:01→22:45)
[2021-01-16] MEDS: PHENAZOPYRIDINE 95 MG TABLET PO SCH ×2 (09:02→17:13)
[2021-01-16] MEDS: ASPIRIN EC 81 MG TABLET PO SCH (09:02)
[2021-01-16] MEDS: FINASTERIDE 5 MG TABLET PO SCH (09:02)
[2021-01-16] MEDS: FUROSEMIDE 40 MG/4 ML VIAL IV SCH ×2 (09:03→15:54)
[2021-01-16] MEDS: POLYETHYLENE GLYCOL POWDER 17 GM PACK PO SCH (09:07)
[2021-01-16] MEDS: BUDESONIDE/FORMOTEROL 160-4.5 INHALER 6 GM INH SCH ×2 (09:08→22:50)
[2021-01-16] MEDS: NYSTATIN 500,000 UNIT/5 ML UDCUP SWISH/SWAL SCH ×4 (09:21→22:46)
[2021-01-16] MEDS: ROSUVASTATIN 20 MG TABLET PO SCH (22:42)
[2021-01-16] MEDS: ZALEPLON 5 MG CAPSULE PO PRN (23:17)
[2021-01-17] MEDS: ALBUTEROL/IPRATROPIUM 3 ML NEB RESP TX SCH ×6 (00:31→19:44)
[2021-01-17] MEDS: ALBUTEROL 2.5 MG/3 ML NEB RESP TX PRN (04:19)
[2021-01-17 05:56] LABS: Basophils % 0.1 % (0.0-0.8); Eosinophils # 0.2 10*3/uL (0.0-0.87); Eosinophils % 1.5 % (0.00-10.9); Hematocrit 33.4 VOL% (42.0-52.0); Hemoglobin 10.5 GM/DL (14.0-18.0); Immature Granulocytes % 4.5 %; Immature Granulocytes Absolute 0.44 #; Lymphocytes # 0.8 10*3/uL (1.4-4.0); Lymphocytes % 8.3 % (21.2-54.2); Mean Corpuscular HGB Conc 31.4 GM/DL (32-36); Mean Platelet Volume 9.6 FL (9.6-12.0); Monocytes % 7.9 % (1.7-12.7); Neutrophils % 77.7 % (38.7-73.9); Platelet Count 344 T/CUMM (130-400); Red Blood Count 3.63 MC/CUMM (3.8-5.5); Red Cell Distribution Width 14.2 % (9.3-17.3); White Blood Count 9.8 T/CUMM (4-12)
[2021-01-17 06:09] LABS: Calcium 8.3 MG/DL (8.5-10.1); Osmolality,Calculated 280.1 MOS/KG (273-304); Potassium 4.8 MMOL/L (3.5-5.1)
[2021-01-17] MEDS: NYSTATIN 500,000 UNIT/5 ML UDCUP SWISH/SWAL SCH ×4 (09:09→20:59)
[2021-01-17] MEDS: SPIRONOLACTONE 25 MG TABLET PO SCH (09:09)
[2021-01-17] MEDS: ASPIRIN EC 81 MG TABLET PO SCH (09:09)
[2021-01-17] MEDS: PHENAZOPYRIDINE 95 MG TABLET PO SCH ×2 (09:09→16:33)
[2021-01-17] MEDS: TAMSULOSIN 0.4 MG CAPSULE PO SCH ×2 (09:10→20:58)
[2021-01-17] MEDS: POTASSIUM CHLORIDE 20 MEQ TABLET PO SCH ×2 (09:10→20:57)
[2021-01-17] MEDS: FERROUS SULFATE 325 MG TABLET PO SCH (09:10)
[2021-01-17] MEDS: ISOSORBIDE MONONITRATE 30 MG TABLET PO SCH (09:10)
[2021-01-17] MEDS: FINASTERIDE 5 MG TABLET PO SCH (09:11)
[2021-01-17] MEDS: METOPROLOL TARTRATE 50 MG TABLET PO SCH ×2 (09:11→20:57)
[2021-01-17] MEDS: ASCORBIC ACID 500 MG TABLET PO SCH ×2 (09:11→20:59)
[2021-01-17] MEDS: DOCUSATE SODIUM 100 MG CAPSULE PO SCH (09:11)
[2021-01-17] MEDS: AMIODARONE 200 MG TABLET PO SCH ×2 (09:11→20:56)
[2021-01-17] MEDS: APIXABAN 5 MG TABLET PO SCH ×2 (09:11→20:58)
[2021-01-17] MEDS: predniSONE 20 MG TABLET PO SCH (09:11)
[2021-01-17] MEDS: PANTOPRAZOLE 40 MG TABLET PO SCH (09:12)
[2021-01-17] MEDS: FUROSEMIDE 40 MG/4 ML VIAL IV SCH ×2 (09:12→16:33)
[2021-01-17] MEDS: POLYETHYLENE GLYCOL POWDER 17 GM PACK PO SCH (09:13)
[2021-01-17] MEDS: BUDESONIDE/FORMOTEROL 160-4.5 INHALER 6 GM INH SCH ×2 (09:13→21:03)
[2021-01-17] MEDS: ROSUVASTATIN 20 MG TABLET PO SCH (20:56)
[2021-01-17] MEDS: ZALEPLON 5 MG CAPSULE PO PRN (21:24)
[2021-01-18] MEDS: ALBUTEROL/IPRATROPIUM 3 ML NEB RESP TX SCH ×6 (00:28→19:56)
[2021-01-18 06:07] LABS: Basophils % 0.1 % (0.0-0.8); Eosinophils # 0.2 10*3/uL (0.0-0.87); Eosinophils % 1.6 % (0.00-10.9); Hematocrit 33.8 VOL% (42.0-52.0); Hemoglobin 10.6 GM/DL (14.0-18.0); Immature Granulocytes % 5.9 %; Immature Granulocytes Absolute 0.55 #; Lymphocytes # 0.7 10*3/uL (1.4-4.0); Lymphocytes % 7.6 % (21.2-54.2); Mean Corpuscular HGB Conc 31.4 GM/DL (32-36); Mean Corpuscular Volume 92.1 FL (87-102); Mean Platelet Volume 9.8 FL (9.6-12.0); Monocytes % 9.7 % (1.7-12.7); Neutrophils % 75.1 % (38.7-73.9); Platelet Count 387 T/CUMM (130-400); Red Blood Count 3.67 MC/CUMM (3.8-5.5); Red Cell Distribution Width 14.3 % (9.3-17.3); White Blood Count 9.4 T/CUMM (4-12)
[2021-01-18 06:24] LABS: Calcium 8.2 MG/DL (8.5-10.1); Osmolality,Calculated 282.1 MOS/KG (273-304); Potassium 4.3 MMOL/L (3.5-5.1)
[2021-01-18 07:09] LABS: Eosinophils 1 % (0-10); Lymphocytes 14 % (20-55); Promyelocytes 1 %; Segmented Neutrophils 81 % (50-85); Total Cells Counted 100
[2021-01-18 07:10] LABS: Platelet Estimate Adequate; Reactive Lymphocytes Few
[2021-01-18] MEDS: POLYETHYLENE GLYCOL POWDER 17 GM PACK PO SCH (08:40)
[2021-01-18] MEDS: predniSONE 20 MG TABLET PO SCH (08:40)
[2021-01-18] MEDS: FINASTERIDE 5 MG TABLET PO SCH (08:41)
[2021-01-18] MEDS: METOPROLOL TARTRATE 50 MG TABLET PO SCH ×2 (08:42→20:57)
[2021-01-18] MEDS: POTASSIUM CHLORIDE 20 MEQ TABLET PO SCH ×2 (08:42→20:55)
[2021-01-18] MEDS: FERROUS SULFATE 325 MG TABLET PO SCH (08:43)
[2021-01-18] MEDS: ASCORBIC ACID 500 MG TABLET PO SCH ×2 (08:43→20:56)
[2021-01-18] MEDS: AMIODARONE 200 MG TABLET PO SCH ×2 (08:43→20:57)
[2021-01-18] MEDS: ASPIRIN EC 81 MG TABLET PO SCH (08:44)
[2021-01-18] MEDS: APIXABAN 5 MG TABLET PO SCH ×2 (08:44→20:57)
[2021-01-18] MEDS: PANTOPRAZOLE 40 MG TABLET PO SCH (08:44)
[2021-01-18] MEDS: PHENAZOPYRIDINE 95 MG TABLET PO SCH (08:45)
[2021-01-18] MEDS: DOCUSATE SODIUM 100 MG CAPSULE PO SCH (08:45)
[2021-01-18] MEDS: TAMSULOSIN 0.4 MG CAPSULE PO SCH ×2 (08:45→20:56)
[2021-01-18] MEDS: SPIRONOLACTONE 25 MG TABLET PO SCH (08:45)
[2021-01-18] MEDS: FUROSEMIDE 40 MG/4 ML VIAL IV SCH ×2 (08:46→17:15)
[2021-01-18] MEDS: BUDESONIDE/FORMOTEROL 160-4.5 INHALER 6 GM INH SCH ×2 (08:46→20:58)
[2021-01-18] MEDS: ISOSORBIDE MONONITRATE 30 MG TABLET PO SCH (08:46)
[2021-01-18] MEDS: ROSUVASTATIN 20 MG TABLET PO SCH (20:57)
[2021-01-18] MEDS: ZALEPLON 5 MG CAPSULE PO PRN (22:15)
[2021-01-19] MEDS: ALBUTEROL/IPRATROPIUM 3 ML NEB RESP TX SCH ×5 (00:42→15:03)
[2021-01-19 05:20] LABS: Basophils % 0.1 % (0.0-0.8); Eosinophils # 0.1 10*3/uL (0.0-0.87); Eosinophils % 0.9 % (0.00-10.9); Hematocrit 32.5 VOL% (42.0-52.0); Hemoglobin 10.3 GM/DL (14.0-18.0); Immature Granulocytes % 7.9 %; Immature Granulocytes Absolute 0.72 #; Lymphocytes # 0.7 10*3/uL (1.4-4.0); Lymphocytes % 7.1 % (21.2-54.2); Mean Corpuscular HGB Conc 31.7 GM/DL (32-36); Mean Corpuscular Volume 91.8 FL (87-102); Mean Platelet Volume 9.3 FL (9.6-12.0); Monocytes % 8.4 % (1.7-12.7); Neutrophils % 75.6 % (38.7-73.9); Platelet Count 382 T/CUMM (130-400); Red Blood Count 3.54 MC/CUMM (3.8-5.5); Red Cell Distribution Width 14.5 % (9.3-17.3); White Blood Count 9.2 T/CUMM (4-12)
[2021-01-19 05:43] LABS: Eosinophils 1 % (0-10); Hypochromasia 1+; Lymphocytes 5 % (20-55); Metamyelocytes 1 %; Segmented Neutrophils 85 % (50-85); Total Cells Counted 100
[2021-01-19 05:44] LABS: Microcytosis 1+; Ovalocytes Slight; Platelet Estimate Normal
[2021-01-19 05:51] LABS: Calcium 8.2 MG/DL (8.5-10.1); Potassium 4.5 MMOL/L (3.5-5.1)
[2021-01-19] MEDS: ASCORBIC ACID 500 MG TABLET PO SCH (08:38)
[2021-01-19] MEDS: POTASSIUM CHLORIDE 20 MEQ TABLET PO SCH (08:38)
[2021-01-19] MEDS: PANTOPRAZOLE 40 MG TABLET PO SCH (08:38)
[2021-01-19] MEDS: METOPROLOL TARTRATE 50 MG TABLET PO SCH (08:38)
[2021-01-19] MEDS: SPIRONOLACTONE 25 MG TABLET PO SCH (08:39)
[2021-01-19] MEDS: predniSONE 20 MG TABLET PO SCH (08:39)
[2021-01-19] MEDS: FERROUS SULFATE 325 MG TABLET PO SCH (08:39)
[2021-01-19] MEDS: ISOSORBIDE MONONITRATE 30 MG TABLET PO SCH (08:39)
[2021-01-19] MEDS: TAMSULOSIN 0.4 MG CAPSULE PO SCH (08:39)
[2021-01-19] MEDS: AMIODARONE 200 MG TABLET PO SCH (08:40)
[2021-01-19] MEDS: ASPIRIN EC 81 MG TABLET PO SCH (08:40)
[2021-01-19] MEDS: DOCUSATE SODIUM 100 MG CAPSULE PO SCH (08:40)
[2021-01-19] MEDS: APIXABAN 5 MG TABLET PO SCH (08:40)
[2021-01-19] MEDS: POLYETHYLENE GLYCOL POWDER 17 GM PACK PO SCH (08:40)
[2021-01-19] MEDS: FINASTERIDE 5 MG TABLET PO SCH (08:43)
[2021-01-19] MEDS: FUROSEMIDE 40 MG/4 ML VIAL IV SCH (08:47)
[2021-01-19] MEDS: BUDESONIDE/FORMOTEROL 160-4.5 INHALER 6 GM INH SCH (08:48)
[2021-01-19 12:07] VITALS: BP 103/54
[2021-01-19] MEDS ORDERED: FUROSEMIDE 40 MG TABLET PO SCH (16:00)
== END 2021-01-19 15:40 | DRG 235 ==
LOC: N.TELES 09:31 → N.CVR 12-25 11:32 → N.ICU 12-28 11:28 → N.TELES 01-01 20:59 → N.ICU 01-09 03:05 → N.TELES 01-11 10:54